=== PATIENT | female | born 1955 | race Two or more races ===

== ENCOUNTER 2023-05-04 08:38 | Emergency (ER) | payer OTHER, MEDICAID ==
[~2023-05-04] VITALS: Ht 154.9 cm; Wt 88.1 kg
[2023-05-04] MEDS ORDERED: IPRATROPIUM BROM 0.5 MG/2.5ML INH SOL NEB ONE ×2 (09:15→10:45)
[2023-05-04] MEDS ORDERED: ALBUTEROL SULF 2.5 MG/0.5ML(0.5%) NEB SOLN NEB ONE ×2 (09:15→10:45)
[2023-05-04 10:24] VITALS: BP 156/72; PULSE 83; TEMP 98.1
[2023-05-04 10:52] VITALS: RESP 18; O2SAT 95
[2023-05-04] MEDS ORDERED: BECL40AE11 IN (11:01)
[2023-05-04] MEDS ORDERED: DexAMETHasone SOD PHOS 10MG/1ML VIAL INJ IM ONE (11:30)
[2023-05-04] MEDS ORDERED: AZIT-81 PO (12:48)
== END 2023-05-04 11:42 | disposition home or self-care (01) ==
LOC: ER 08:38
DX: J45.901 Unspecified asthma with (acute) exacerbation (principal); I10 Essential (primary) hypertension; R07.89 Other chest pain
CPT/HCPCS: 71046; 94640; 96372; 99284; J1100; J7644

== ENCOUNTER 2023-07-11 09:46 | Inpatient (IN) | payer OTHER, MEDICAID ==
[~2023-07-11] VITALS: Ht 154.9 cm; Wt 92.0 kg
[~2023-07-11 09:46] MED LIST: AZIT-81 PO; BECL40AE11 IN
[2023-07-11] MEDS ORDERED: NITROGLYCERIN 2% OINT 1GM PKG TD ONE (10:30)
[2023-07-11] MEDS ORDERED: FUROSEMIDE 40 MG/4 ML VIAL IV ONE (10:30)
[2023-07-11] MEDS ORDERED: ASPirin 81 mg TAB PO ONE (10:30)
[2023-07-11 10:53] LABS: Basophils # (auto) 0.1 10 ^3/uL (0-0.2); Basophils % (auto) 0.7 % (0.0-2.0); Eosinophils # (auto) 0.1 10 ^3/uL (0-0.8); Eosinophils % (auto) 1.1 % (0.0-7.0); Hematocrit 40.8 % (36.0-46.0); Hemoglobin 13.2 g/dL (12.2-16.2); Lymphocytes # (auto) 2.2 10 ^3/uL (0.4-5.4); Lymphocytes % (auto) 27.2 % (10.0-50.0); Mean Corpuscular Hgb Conc. 32.4 g/dL (32.0-36.0); Mean Corpuscular Volume 92.7 fL (80.0-100.0); Monocytes # (auto) 0.8 10 ^3/uL (0-1.3); Monocytes % (auto) 9.6 % (0.0-12.0); Neutrophils # (auto) 4.9 10 ^3/uL (1.6-8.6); Neutrophils % (auto) 61.4 % (37.0-80.0); Nucleated Red Blood Cells % 0.1 %; Red Cell Distribution Width 14.9 % (11.8-14.3)
[2023-07-11 11:08] LABS: INR 1.17 (0.9-1.15); Partial Thromboplastin Time 24.3 SEC (24.5-34.5); Prothrombin Time 12.2 sec (9.3-11.8)
[2023-07-11 11:10] LABS: Alanine Aminotransferase 63 U/L (7-40); Albumin 3.9 g/dL (3.2-4.8); Alkaline Phosphatase 96 U/L (46-116); Anion Gap 8 (5-15); Aspartate Aminotransferase 36 U/L (13-40); BUN/Creatinine Ratio 13.7 (10.0-20.0); Bilirubin, Total 0.8 mg/dL (0.2-1.0); Blood Urea Nitrogen 20 mg/dL (9-23); Calcium 8.9 mg/dL (8.7-10.4); Carbon Dioxide 30 mmol/L (20-30); Chloride 100 mmol/L (98-107); Glucose 123 mg/dL (74-106); Magnesium 1.6 mg/dL (1.6-2.6); Sodium 138 mmol/L (136-145); Total Protein 6.2 g/dL (5.7-8.2)
[2023-07-11] MEDS: MAGNESIUM SULFATE 1GM/100ML 100 ML IV SCH ×2 (11:45→15:31)
[2023-07-11] MEDS ORDERED: ALBUTEROL MEDNEB 2.5 mg/3ml NEB NEB PRN (13:15)
[2023-07-11] MEDS ORDERED: LISINOPRIL 5 MG TAB PO ONE (13:45)
[2023-07-11 13:55] LABS: Triglycerides 112 mg/dL (< 150)
[2023-07-11 13:56] LABS: LDL Cholesterol 109 mg/dL (< 100)
[2023-07-11 13:57] LABS: Cholesterol 154 mg/dL (< 200); HDL Cholesterol 40 mg/dL (40-59)
[2023-07-11] MEDS ORDERED: IBUP1TAB4 PO (14:52)
[2023-07-11] MEDS ORDERED: VALS1TAB58 PO (14:52)
[2023-07-11] MEDS ORDERED: MET50T PO (14:52)
[2023-07-11 14:57] VITALS: BP 120/61; PULSE 101; RESP 18; TEMP 98.3; O2SAT 94
[2023-07-11 20:21] VITALS: BP 120/61; PULSE 101; RESP 18; TEMP 98.3; O2SAT 94
[2023-07-11 22:00] VITALS: BP 129/80; PULSE 105; RESP 20; TEMP 98.3; O2SAT 95
[2023-07-11 23:05] VITALS: O2SAT 94
[2023-07-12] VITALS (14 sets, daily range): BP systolic 102–136; BP diastolic 64–93; PULSE 58–124; RESP 17–24; TEMP 97.8–98.8; O2SAT 92–100
[2023-07-12 07:00] LABS: Basophils # (auto) 0 10 ^3/uL (0-0.2); Basophils % (auto) 0.5 % (0.0-2.0); Eosinophils # (auto) 0.2 10 ^3/uL (0-0.8); Eosinophils % (auto) 2.4 % (0.0-7.0); Hematocrit 38.4 % (36.0-46.0); Hemoglobin 12.8 g/dL (12.2-16.2); Lymphocytes # (auto) 2.2 10 ^3/uL (0.4-5.4); Lymphocytes % (auto) 34.5 % (10.0-50.0); Mean Corpuscular Hemoglobin 30.8 pg (28.0-32.0); Mean Corpuscular Hgb Conc. 33.3 g/dL (32.0-36.0); Mean Corpuscular Volume 92.8 fL (80.0-100.0); Monocytes # (auto) 0.6 10 ^3/uL (0-1.3); Monocytes % (auto) 9.6 % (0.0-12.0); Neutrophils # (auto) 3.4 10 ^3/uL (1.6-8.6); Red Blood Cells 4.14 10^6/uL (4.0-5.20); Red Cell Distribution Width 14.7 % (11.8-14.3); White Blood Cell 6.4 10^3/uL (4.4-10.8)
[2023-07-12 08:03] LABS: Alanine Aminotransferase 51 U/L (7-40); Alkaline Phosphatase 76 U/L (46-116); Calcium 8.9 mg/dL (8.5-10.1); Chloride 101 mmol/L (98-107)
[2023-07-12 08:04] LABS: Albumin 3.5 g/dL (3.2-4.8); Anion Gap 5 (5-15); Aspartate Aminotransferase 34 U/L (13-40); BUN/Creatinine Ratio 15.6 (10.0-20.0); Blood Urea Nitrogen 20 mg/dL (9-23); Carbon Dioxide 33 mmol/L (20-30); Glucose 109 mg/dL (74-106); Potassium 3.8 mmol/L (3.5-5.1); Sodium 139 mmol/L (136-145)
[2023-07-12 08:05] LABS: Bilirubin, Total 0.9 mg/dL (0.2-1.0); Total Protein 5.6 g/dL (5.7-8.2)
[2023-07-12] MEDS ORDERED: ENOXAPARIN SOD 40 MG/0.4 ML SYRINGE SC SCH (10:00)
[2023-07-12] MEDS: ASPirin 81 mg TAB PO SCH (10:19)
[2023-07-12] MEDS: FUROSEMIDE 20 MG/2 ML VIAL IV SCH (10:22)
[2023-07-12] MEDS: LISINOPRIL 5 MG TAB PO SCH (10:26)
[2023-07-12] MEDS: APIXABAN 5 MG TAB PO SCH (21:02)
[2023-07-13] VITALS (10 sets, daily range): BP systolic 92–130; BP diastolic 46–82; PULSE 68–99; RESP 16–20; TEMP 97.5–98.4; O2SAT 96–99
[2023-07-13] MEDS ORDERED: METOPROLOL SUCCINATE XL 50 MG TAB PO ONE (01:45)
[2023-07-13] MEDS ORDERED: METOPROLOL TARTRATE 50 MG TAB PO ONE (02:00)
[2023-07-13] MEDS: ASPirin 81 mg TAB PO SCH (08:52)
[2023-07-13] MEDS: METOPROLOL TARTRATE 50 MG TAB PO SCH ×2 (08:53→22:01)
[2023-07-13] MEDS: APIXABAN 5 MG TAB PO SCH (08:53)
[2023-07-13] MEDS: FUROSEMIDE 20 MG/2 ML VIAL IV SCH (08:54)
[2023-07-13] MEDS: LISINOPRIL 5 MG TAB PO SCH (08:54)
[2023-07-13] MEDS ORDERED: METOPROLOL SUCCINATE XL 50 MG TAB PO SCH (10:00)
[2023-07-13 13:02] LABS: Basophils # (auto) 0 10 ^3/uL (0-0.2); Basophils % (auto) 0.6 % (0.0-2.0); Eosinophils # (auto) 0.1 10 ^3/uL (0-0.8); Eosinophils % (auto) 2.5 % (0.0-7.0); Hematocrit 39.2 % (36.0-46.0); Lymphocytes # (auto) 1.6 10 ^3/uL (0.4-5.4); Lymphocytes % (auto) 27.2 % (10.0-50.0); Mean Corpuscular Hemoglobin 30.8 pg (28.0-32.0); Mean Corpuscular Hgb Conc. 33.2 g/dL (32.0-36.0); Mean Corpuscular Volume 92.9 fL (80.0-100.0); Monocytes # (auto) 0.5 10 ^3/uL (0-1.3); Monocytes % (auto) 8.2 % (0.0-12.0); Neutrophils # (auto) 3.7 10 ^3/uL (1.6-8.6); Neutrophils % (auto) 61.5 % (37.0-80.0); Nucleated Red Blood Cells % 0.1 %; Red Blood Cells 4.22 10^6/uL (4.0-5.20); Red Cell Distribution Width 14.9 % (11.8-14.3)
[2023-07-13 13:37] LABS: Wright Stain Ready for Review
[2023-07-14] VITALS (9 sets, daily range): BP systolic 108–149; BP diastolic 67–82; PULSE 55–110; RESP 18–19; TEMP 97.7–98.2; O2SAT 92–99
[2023-07-14] MEDS: FUROSEMIDE 20 MG/2 ML VIAL IV SCH (09:51)
[2023-07-14] MEDS: LISINOPRIL 5 MG TAB PO SCH (09:52)
[2023-07-14] MEDS: METOPROLOL TARTRATE 50 MG TAB PO SCH ×2 (09:52→21:44)
[2023-07-14 13:59] LABS: Urine Bacteria NONE SEEN /hpf (None Seen); Urine Blood Negative /uL (Negative); Urine Clarity Clear (Clear); Urine Color Straw (Yellow); Urine Protein, UAD Negative (Negative); Urine Specific Gravity 1.006 (1.001-1.035); Urine Urobilinogen Normal (Negative); Urine WBC <1 /hpf (0 - 5); Urine pH 6.5 (5.0-8.0)
[2023-07-15] VITALS (12 sets, daily range): BP systolic 121–146; BP diastolic 65–108; PULSE 85–117; RESP 14–20; TEMP 97.5–98.2; O2SAT 90–100
[2023-07-15 06:39] LABS: Basophils # (auto) 0.1 10 ^3/uL (0-0.2); Basophils % (auto) 0.7 % (0.0-2.0); Eosinophils # (auto) 0.1 10 ^3/uL (0-0.8); Eosinophils % (auto) 1.9 % (0.0-7.0); Hematocrit 39.8 % (36.0-46.0); Lymphocytes # (auto) 2.2 10 ^3/uL (0.4-5.4); Lymphocytes % (auto) 32.4 % (10.0-50.0); Mean Corpuscular Hemoglobin 30.5 pg (28.0-32.0); Mean Corpuscular Hgb Conc. 32.6 g/dL (32.0-36.0); Mean Corpuscular Volume 93.6 fL (80.0-100.0); Monocytes # (auto) 0.6 10 ^3/uL (0-1.3); Monocytes % (auto) 9.4 % (0.0-12.0); Neutrophils # (auto) 3.8 10 ^3/uL (1.6-8.6); Neutrophils % (auto) 55.6 % (37.0-80.0); Nucleated Red Blood Cells % 0.1 %; Red Blood Cells 4.25 10^6/uL (4.0-5.20); Red Cell Distribution Width 14.8 % (11.8-14.3); White Blood Cell 6.9 10^3/uL (4.4-10.8)
[2023-07-15 06:55] LABS: Alanine Aminotransferase 36 U/L (7-40); Alkaline Phosphatase 69 U/L (46-116); Anion Gap 2 (5-15); BUN/Creatinine Ratio 12.1 (10.0-20.0); Blood Urea Nitrogen 12 mg/dL (9-23); Calcium 8.9 mg/dL (8.7-10.4); Carbon Dioxide 39 mmol/L (20-30); Chloride 97 mmol/L (98-107); Glucose 102 mg/dL (74-106); Potassium 4.1 mmol/L (3.5-5.1); Sodium 138 mmol/L (136-145)
[2023-07-15 06:56] LABS: Albumin 3.7 g/dL (3.2-4.8); Aspartate Aminotransferase 23 U/L (13-40); Bilirubin, Total 0.9 mg/dL (0.2-1.0); Total Protein 6.1 g/dL (5.7-8.2)
[2023-07-15] MEDS ORDERED: VANCOMYCIN HCL 1000 MG VL ONE ×2 (07:50→09:10)
[2023-07-15] MEDS ORDERED: fentaNYL CITRATE 100 MCG/2 ML VL ONE (07:50)
[2023-07-15] MEDS ORDERED: MIDAZOLAM HCL 2MG/2ML 2ml VIAL (1mg/ml) ONE (07:51)
[2023-07-15] MEDS ORDERED: LIDOCAINE 2%HCL (LOCAL ANESTH.) INJ 20ML MDV ONE (07:51)
[2023-07-15] MEDS ORDERED: VANCOMYCIN 1GM/250ML 250 ML IV ONE (07:51)
[2023-07-15] MEDS ORDERED: IODIXANOL 320MG/ML 100ML BTL IV ONE (08:16)
[2023-07-15 08:33] LABS: INR 1.1 (0.9-1.15); Partial Thromboplastin Time 27.5 SEC (24.5-34.5); Prothrombin Time 11.5 sec (9.3-11.8)
[2023-07-15] MEDS ORDERED: METOPROLOL TARTRATE 1MG/1ML-5ML VIAL IV ONE (08:39)
[2023-07-15] MEDS: METOPROLOL TARTRATE 50 MG TAB PO SCH ×2 (10:00→21:54)
[2023-07-15] MEDS: FUROSEMIDE 20 MG/2 ML VIAL IV SCH (10:00)
[2023-07-15] MEDS: LISINOPRIL 5 MG TAB PO SCH (10:00)
[2023-07-15] MEDS: ceFAZolin 1GM/50ML 50 ML IV SCH ×2 (13:44→22:52)
[2023-07-15] MEDS: ACETAMINOPHEN 325 MG TAB PO PRN (13:44)
[2023-07-15] MEDS ORDERED: VANCOMYCIN 1GM/250ML 250 ML IV SCH (20:00)
[2023-07-16] VITALS (8 sets, daily range): BP systolic 126–165; BP diastolic 73–91; PULSE 88–113; RESP 16–22; TEMP 97.6–99.3; O2SAT 91–100
[2023-07-16] MEDS: ceFAZolin 1GM/50ML 50 ML IV SCH ×3 (05:39→22:04)
[2023-07-16] MEDS: ACETAMINOPHEN 325 MG TAB PO PRN ×2 (06:03→21:55)
[2023-07-16] MEDS ORDERED: ALBUTEROL SULF 2.5 MG/0.5ML(0.5%) NEB SOLN ONE (06:12)
[2023-07-16] MEDS ORDERED: VANCOMYCIN 1GM/250ML 250 ML IV SCH (08:00)
[2023-07-16] MEDS: LISINOPRIL 5 MG TAB PO SCH (09:10)
[2023-07-16] MEDS: METOPROLOL TARTRATE 50 MG TAB PO SCH ×2 (09:11→21:54)
[2023-07-16] MEDS: FUROSEMIDE 20 MG/2 ML VIAL IV SCH (09:11)
[2023-07-17 02:20] VITALS: O2SAT 92
[2023-07-17 05:00] VITALS: BP 137/89; PULSE 74; RESP 16; TEMP 98.2; O2SAT 96
[2023-07-17] MEDS: ceFAZolin 1GM/50ML 50 ML IV SCH ×2 (06:00→14:38)
[2023-07-17 08:00] VITALS: PULSE 114
[2023-07-17 09:00] VITALS: BP 139/91; PULSE 79; RESP 16; TEMP 98.1; O2SAT 96
[2023-07-17] MEDS: METOPROLOL TARTRATE 50 MG TAB PO SCH (10:16)
[2023-07-17] MEDS: LISINOPRIL 5 MG TAB PO SCH (10:16)
[2023-07-17] MEDS: FUROSEMIDE 20 MG/2 ML VIAL IV SCH (10:17)
[2023-07-17 13:00] VITALS: BP 119/73; PULSE 80; RESP 14; TEMP 98.1; O2SAT 95
== END 2023-07-17 16:58 | disposition home or self-care (01) | DRG 276 ==
LOC: ER 09:48 → OVERFLOW 13:11 → CENTRAL 14:04 → WEST WING 07-12 03:50 → TELE-WESTW 07-13 04:00
PROVIDERS: ADMIT Nurse Practitioner Family; ATTEND Family Medicine
PROC: 0JH609Z Insertion of Cardiac Resynchronization Defibrillator Pulse Generator into Chest Subcutaneous Tissue and Fascia, Open Approach (ICD-10-PCS; principal; 2023-07-15)
PROC: 02HK3KZ Insertion of Defibrillator Lead into Right Ventricle, Percutaneous Approach (ICD-10-PCS; 2023-07-15)
PROC: B517YZZ Fluoroscopy of Left Subclavian Vein using Other Contrast (ICD-10-PCS; 2023-07-15)
DX: I13.0 Hypertensive heart and chronic kidney disease with heart failure and stage 1 through stage 4 chronic kidney disease, or unspecified chronic kidney disease (principal); I50.23 Acute on chronic systolic (congestive) heart failure; B57.2 Chagas' disease (chronic) with heart involvement; I48.91 Unspecified atrial fibrillation; I42.9 Cardiomyopathy, unspecified; E66.01 Morbid (severe) obesity due to excess calories; E78.5 Hyperlipidemia, unspecified; N18.30 Chronic kidney disease, stage 3 unspecified; J44.9 Chronic obstructive pulmonary disease, unspecified; E11.22 Type 2 diabetes mellitus with diabetic chronic kidney disease; Z68.38 Body mass index [BMI] 38.0-38.9, adult; Z79.01 Long term (current) use of anticoagulants; Z79.82 Long term (current) use of aspirin; Z80.1 Family history of malignant neoplasm of trachea, bronchus and lung; Z95.810 Presence of automatic (implantable) cardiac defibrillator
CPT/HCPCS: 33249; 36415; 71045; 80053; 80061; 81001; 83036; 83735; 83880; 84443; 84484; 85025; 85379; 85610; 85730; 86850; 86900; 86901; 87081; 93005; 93306; 93970; 94640; 99152; 99153; G0378; J0690; J2250; Q9967

== ENCOUNTER 2024-09-04 10:56 | Emergency (ER) | payer OTHER, MEDICAID ==
[~2024-09-04] VITALS: Ht 154.9 cm; Wt 87.6 kg
[~2024-09-04 10:56] MED LIST changes: +AZIT-185 PO; -AZIT-81 PO; +IBUP1TAB4 PO; +MET50T PO; +VALS1TAB58 PO
--- NOTE | 2024-09-04 13:44 | ED.PDOC ---
SOB-HPI HPI Comments This is a 69 year old feamle with SOB that started last night. States has continued to be SOB since. No cough, feels tired, no fever no chills. 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 History Family History Family History: Unobtainable Social History Smoker: Non-Smoker Alcohol: Denies ETOH Use Drugs: Denies Drug Use Lives In: Home Respiratory: reports: cough, SOB at rest, shortness of breath, wheezing All Other Systems: Reviewed and Negative Physical Exam General Appearance: No Apparent Distress, None, Obese HEENT: Normal ENT Inspection, PERRL/EOMI, Pharynx Normal, TMs Normal Neck: Full Range of Motion, Non-Tender, Normal Inspection Respiratory: Decreased Breath Sounds, No Accessory Muscle Use, Wheezing Cardiovascular: No Edema, Regular Rate/Rhythm Breast Exam: Deferred Gastrointestinal: Non Tender, Normal Bowel Sounds, Soft Genitalia: Deferred Pelvic: Deferred Rectal: Deferred Extremities: Normal inspection, Normal range of motion Neurologic: Alert, Normal Affect, Normal Mood Cerebellar Function: NOT DONE Reflexes: NOT DONE Skin: Dry, Warm Lymphatic: No Adenopathy Was a procedure done? Was a procedure done?: No Differential Dx Differential Diagnosis: Pneumonia X-Ray, Labs, Meds, VS Vital Signs Date Time Temp Pulse Resp B/P (MAP) Pulse Ox O2 Delivery O2 Flow Rate FiO2 09/04/24 13:48 16 95 Room Air* 0 21 09/04/24 12:58 98.7 97 17 137/77 (97) 97 98.7 09/04/24 12:58 77 17 97 Room Air 09/04/24 11:19 18 97 Room Air* 0 21 09/04/24 11:07 98.8 98 18 147/87 (107) 97 Current Medications Medications (Trade) Dose Ordered Sig/Umer Route Start Time Stop Time Status Last Admin Dexamethasone Sodium Phosphate (Decadron Injection) 10 mg ONCE ONCE IM 09/04/24 13:45 09/04/24 13:46 DC 09/04/24 14:06 Albuterol (Ventolin Medneb) 2.5 mg ONCE ONCE NEB 09/04/24 13:45 09/04/24 13:46 DC 09/04/24 13:47 X-Ray, Labs, Meds, VS Comment Patient seen and examined by me. Patient is wheezing. I will give her Decadron 10 mg, Albuterol breathing treatment and chest xray. Patient felt better after the meds. I will send her home on albuterol nebulizer, Antibiotics, prednisone. XY CHEST TWO VIEWS ROUTINE CLINICAL HISTORY: SOB COMPARISON: XY CHEST TWO VIEWS ROUTINE on DOS: 05/04/23 TECHNIQUE: Frontal and lateral view of the chest was obtained FINDINGS: Lines and Tubes: Pacemaker in place with pulse generator over the left chest Lungs: No focal consolidation. Pleura: No effusion. No pneumothorax. Cardiomediastinal contours: Unremarkable Bones: No acute osseous abnormality. IMPRESSION: 1. No acute cardiopulmonary disease. Time of 1ST Reevaluation: 15:29 Reevaluation 1ST: Improved Patient Education/Counseling: Diagnosis, Treatment, Prognosis, Need For Follow Up Family Education/Counseling: Diagnosis, Treatment, Prognosis, Need For Follow Up Departure 1 Departure Time of Disposition: 15:33 Impression: Primary Impression: Asthma exacerbation Additional Impressions: Asthmatic bronchitis Upper respiratory infection Disposition: HOME / SELF CARE / HOMELESS Condition: Good Additional Instructions: Finish antibiotics as directed Drink a lot of liquids Finish all the prednisone until gone e-Prescriptions Albuterol Sulfate (Albuterol Sulfate) 0.083 % Neb 1 VIAL NEB Q4HPRN PRN for 7 Days, #50 VIAL Prov: JIA MINAYA [facility] 09/04/24 Prednisone (Prednisone) 20 Mg Tab 40 MG PO DAILY@BREAKFAST for 5 Days, #4 MG Prov: JIA MINAYA [facility] 09/04/24 Amoxicillin & Pot Clavulanate (AUGMENTIN TABLET) 875 Mg Tb 875 MG PO BID for 7 Days, #14 TAB Prov: JIA MINAYA [facility] 09/04/24 Discharged With: Self, Spouse Critical Care Note Critical Care Time?: No Stability Stability form required: No Heart Score Heart Score: Heart Score Response (Comments) Value History N/A 0 EKG N/A 0 Age N/A 0 Risk Factors N/A 0 Troponin N/A 0 Total 0 JIA MINAYA [facility] Sep 04, 2024 13:44
[2024-09-04] MEDS: ALBUTEROL SULF 2.5 MG/0.5ML(0.5%) NEB SOLN NEB ONE (13:47)
[2024-09-04] MEDS: DexAMETHasone SOD PHOS 10MG/1ML VIAL INJ IM ONE (14:06)
--- NOTE | 2024-09-04 15:19 | DVH ---
XY CHEST TWO VIEWS ROUTINE CLINICAL HISTORY: SOB COMPARISON: XY CHEST TWO VIEWS ROUTINE on DOS: 05/04/23 TECHNIQUE: Frontal and lateral view of the chest was obtained FINDINGS: Lines and Tubes: Pacemaker in place with pulse generator over the left chest Lungs: No focal consolidation. Pleura: No effusion. No pneumothorax. Cardiomediastinal contours: Unremarkable Bones: No acute osseous abnormality. IMPRESSION: 1. No acute cardiopulmonary disease.
[2024-09-04] MEDS ORDERED: AUG875T PO (15:32)
[2024-09-04] MEDS ORDERED: PRED20TA2 PO (15:32)
[2024-09-04] MEDS ORDERED: ALBU0.084 NEB (15:32)
[2024-09-04 15:50] VITALS: BP 117/88; PULSE 76; RESP 20; TEMP 98.4; O2SAT 98
== END 2024-09-04 15:57 | disposition home or self-care (01) ==
LOC: ER 10:56
DX: J45.901 Unspecified asthma with (acute) exacerbation (principal); J06.9 Acute upper respiratory infection, unspecified; I10 Essential (primary) hypertension; Z95.0 Presence of cardiac pacemaker; Z98.890 Other specified postprocedural states
CPT/HCPCS: 71046; 94640; 96372; 99285; J1100; J7030

== ENCOUNTER 2024-12-08 11:08 | Inpatient (IN) | payer OTHER, MEDICAID ==
[~2024-12-08] VITALS: Ht 149.9 cm; Wt 89.4 kg
[~2024-12-08 11:08] MED LIST changes: +ALBU0.084 NEB; +AUG875T PO; +PRED20TA2 PO
--- NOTE | 2024-12-08 11:36 | ED.PDOC ---
SOB-HPI HPI Comments 69y F who presents to the ED for chief complaint of shortness of breath. PMH: HTN, asthma PSH: pacemaker allergies: nkda medications: unknown social history: denies ETOH, denies tobacco use, denies drug use HPI: Poor Historian. - pt states she had an episode of palpitations that lasted a few second. - pt states she has continued to have shortness of breath while at rest and with exertion and came to the ED for further evaluation. Patient denies any in his shock by the pacemaker/defibrillator. Patient states having chronic worsening generalized weakness with ambulation. She uses a walker at home. She feels that her legs are weak and shaking when she tries to walk which is acute on chronic. REVIEW OF SYSTEMS: CONSTITUTIONAL: Denies acute: fever, diaphoresis, chills, HEAD: Denies acute: headache, photophobia Eyes: Denies acute: Double vision, vision loss, eye pain, eye discharge. EARS: Denies acute: tinnitus, hearing loss, ear discharge, ear pain, THROAT: Denies acute: sore throat, swelling, difficulty swallowing , pain with swallowing, change in voice. NECK: Denies acute: neck pain, neck swelling, stiff neck. HEART: Denies acute : chest pain, LUNGS: Denies acute: wheezing, cough, hemoptysis ABDOMEN: Denies acute: abdominal pain, Nausea, Vomiting, diarrhea, melena , hematemesis, hematochezia. Obese SKIN: Denies acute: rash, redness, lesions, itchiness. EXTREMITIES: Denies acute: calf pain, numbness, tingling, weakness, denies pain in extremity. Denies acute: Low back pain. Neuro: Denies acute: focal neurological deficit, motor or sensory focal neurological deficit, tremors, seizure like activity, confusion, dizziness, change in mental status, loss of bowel or bladder function, cauda equina like symptoms. : Denies acute: dysuria, hematuria, flank pain, increase in urinary frequency. PSYCH: Denies acute: hallucination, suicidal ideation, homicidal ideation. FEMALE: Denies acute: abnormal vaginal bleeding, foul odor, unusual discharge. PHYSICAL EXAM: General: ----mild----acute distress, awake and alert. Head: normocephalic, atraumatic. Neck: supple, trachea is midline, no swelling. Throat: Normal phonation. Eyes:, no erythema, no purulent discharge, no proptosis, no icterus. Heart: regular rate, regular rhythm, no significant murmur appreciated. Lungs: no apparent respiratory distress, Able to speak in full sentences. No wheezing, no rhonchi, no crackles. No stridors Clear to auscultation bilaterally. Abdomen: non tender to palpation, non distended, soft, no guarding, no rebound, + bowel sounds. Obese Pacemaker site on left chest wall looks normal. Neuro: Awake, Alert, oriented to name, self, situation, follows commands GCS=15. Speech is normal. Skin: no petechia, no purpura, no cyanosis, non-pale, not jaundice. Lower extremities: --no - Pitting edema no deformity, no focal swelling, no calf TTP. Makes eye contact. moves all four extremities. Face: no apparent facial droop. 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 Was a procedure done?: No Differential Dx Differential Diagnosis: Other (DDx include ACS, unstable angina, anxiety, PE, pneumothroax, neoplasm, cardiac ischemia, COPD, asthma, CHF, pleural effusion, tobacco abuse, pneumonia, hypoxia, hypercapnia, anemia., infection/sepsis., pulmonary edema. Asthma, Cardiac tamponade, infection.) X-Ray, Labs, Meds, VS Vital Signs Date Time Temp Pulse Resp B/P (MAP) Pulse Ox O2 Delivery O2 Flow Rate FiO2 12/08/24 18:20 98.0 89 20 92/51 (65) 96 98.0 12/08/24 18:20 89 20 96 Room Air 12/08/24 15:30 98.5 85 20 98/58 (71) 96 98.5 12/08/24 13:55 80 16 95 Room Air* 0 21 12/08/24 13:39 125/67 12/08/24 13:22 98.1 80 18 123/67 (85) 95 98.1 12/08/24 11:46 98 12/08/24 11:15 97.9 109 18 94 97.9 Lab Test 12/08/24 14:36 12/08/24 14:33 12/08/24 12:19 12/08/24 11:44 Range/Units Troponin I High Sensitivity 23 24 </=34 ng/L Blood Gas Specimen Type Arterial Blood Gas Sample Site Right radial Blood Gas Patient Temperature 37.0 Arterial Blood Date Drawn [id number] Arterial Blood pH 7.430 7.350-7.450 Arterial Blood Partial Pressure CO2 36.3 32.0-45.0 mmHg Arterial Blood Partial Pressure O2 70.4 L 83.0-108.0 mmHg Arterial Blood HCO3 23.6 21.0-28.0 mmol/L Arterial Blood Oxygen Saturation 94.0 94.0-98.0 % Arterial Blood Base Excess -0.3 -2.0-3.0 mmol/L Arterial Blood Oxyhemoglobin 93.2 L 94.0-98.0 % Arterial Blood Carboxyhemoglobin 0.4 L 0.5-1.5 % Arterial Blood Methemoglobin 0.4 0.0-1.5 % Ritesh Test Yes Blood Gas Total Hemoglobin 14.20 12.0-16.0 g/dL Blood Gas Modality Room air FiO2 % 21.0 Urine Color Light-yellow Yellow Urine Clarity Clear Clear Urine pH 6.0 5.0-9.0 Urine Specific Husser 1.009 1.001-1.035 Urine Protein Negative Negative Urine Ketones Negative Negative Urine Blood Negative Negative /uL Urine Nitrite Negative Negative Urine Bilirubin Negative Negative Urine Urobilinogen Normal Negative mg/dL Urine Leukocyte Esterase 2+ Negative /uL Urine RBC 1 0 - 4 /hpf Urine Microscopic WBC 7 H 0-5 /HPF Urine Squamous Epithelial Cells Few <5 /hpf Urine Bacteria Few H None Seen /hpf Urine Glucose Normal Normal mg/dL Test 12/08/24 11:40 Range/Units White Blood Count 5.2 4.4-10.8 10^3/uL Red Blood Count 4.30 4.0-5.20 10^6/uL Hemoglobin 13.3 12.2-16.2 g/dL Hematocrit 39.7 36.0-46.0 % Mean Corpuscular Volume 92.2 80.0-100.0 fL Mean Corpuscular Hemoglobin 30.9 28.0-32.0 pg Mean Corpuscular Hemoglobin Concent 33.5 32.0-36.0 g/dL Red Cell Distribution Width 13.3 11.8-14.3 % Platelet Count 234 140-450 10^3/uL Mean Platelet Volume 8.7 6.9-10.8 fL Neutrophils (%) (Auto) 53.0 37.0-80.0 % Lymphocytes (%) (Auto) 35.9 10.0-50.0 % Monocytes (%) (Auto) 6.8 0.0-12.0 % Eosinophils (%) (Auto) 3.4 0.0-7.0 % Basophils (%) (Auto) 0.9 0.0-2.0 % Neutrophils # (Auto) 2.8 1.6-8.6 10 ^3/uL Lymphocytes # (Auto) 1.9 0.4-5.4 10 ^3/uL Monocytes # (Auto) 0.4 0-1.3 10 ^3/uL Eosinophils # (Auto) 0.2 0-0.8 10 ^3/uL Basophils # (Auto) 0 0-0.2 10 ^3/uL Nucleated Red Blood Cells 0.2 % Sodium Level 141 136-145 mmol/L Potassium Level 4.2 3.5-5.1 mmol/L Chloride Level 104 98-107 mmol/L Carbon Dioxide Level 31 20-31 mmol/L Anion Gap 6 5-15 Blood Urea Nitrogen 20 9-23 mg/dL Creatinine 1.09 H 0.550-1.02 mg/dL Glomerular Filtration Rate Calc 55 >90 mL/min BUN/Creatinine Ratio 18.3 10.0-20.0 Serum Glucose 178 H 74-106 mg/dL Calcium Level 9.8 8.7-10.4 mg/dL Magnesium Level 1.7 1.6-2.6 mg/dL Total Bilirubin 0.7 0.2-1.0 mg/dL Aspartate Amino Transferase (AST) 19 13-40 U/L Alanine Aminotransferase (ALT) 25 7-40 U/L Alkaline Phosphatase 72 46-116 U/L Troponin I High Sensitivity 25 </=34 ng/L B-Type Natriuretic Peptide 345.58 0-100 pg/mL Total Protein 6.3 5.7-8.2 g/dL Albumin 3.9 3.2-4.8 g/dL Current Medications Medications (Trade) Dose Ordered Sig/Umer Route Start Time Stop Time Status Last Admin Furosemide (Lasix Injection) 20 mg ONCE ONCE IV 12/08/24 13:15 12/08/24 13:16 DC 12/08/24 13:39 Ceftriaxone Sodium 50 ml @ 100 mls/hr ONCE ONCE IV 12/08/24 13:45 12/08/24 14:14 DC 12/08/24 13:59 [place] [id number] Ph: [phone] DIAGNOSTIC IMAGING Diagnostic Imaging Report : [id number] Signed PATIENT: BRADLEY ELLIS ACCT: [id number] UNIT: [id number] : 1955 LOC: ER ROOM / BED: / AGE / SEX: 69 / F ADM STATUS: REG ER SERVICE 1133 ORDERING PHYSICIAN: ZEUS MCKNIGHT DO PROCEDURE(s): CXRP - CHEST PORTABLE REASON: sob/weak ORDER NUMBER(s): [id number], ACCESSION NUMBER(s): [id number] EXAM: XY CHEST PORTABLE Indication: sob/weak Technique: Single frontal view of the chest was obtained Comparison: XY CHEST PORTABLE on DOS: 07/15/23, XY CHEST PORTABLE on DOS: 07/12/23, XY CHEST PORTABLE on DOS: 07/11/23 FINDINGS: Lines and Tubes: Cardiac pacemaker projects over the left chest wall Lungs: No focal consolidation. Pleura: No effusion. No pneumothorax. Cardiomediastinal contours: Cardiomegaly. Bones: No acute osseous abnormality. IMPRESSION: Cardiomegaly. No acute cardiopulmonary disease. ATED BY: GARRISON ORELLANA MD DICTATED DATE/TIME: 12/08/24 1235 SIGNED BY: GARRISON ORELLANA MD SIGNED DATE/TIME: 12/08/24 1235 CC: Time of 1ST Reevaluation: 21:23 Reevaluation 1ST: Improved Patient Education/Counseling: Diagnosis, Treatment Family Education/Counseling: Diagnosis, Treatment Comments Patient presented with the above HPI.---dyspnea---workup was initiated. patient was found with the above mentioned diagnosis. the following medications were ordered: please refer to order lists of meds and tests obtained by myself Dr. Mcknight. Patient ED course and VS have been stabilized. Patient has been reassessed in the ED and remained in a stable condition. Pertinent incidental findings were discussed with the patient and/or family. Patient/family voices understanding and is agreeable with plan. Patient has been observed in the ED adequate length of time to insure improvement/stability. Escalation of care considered: Consideration of escalation to observation or admission Patient was ADMITTED to the medicine team for further evaluation and treatment of their presentation. All the reports of any imaging studies that were ordered by myself were reviewed by myself. Departure 1 Departure Time of Disposition: 13:37 Impression: Primary Impression: Exertional dyspnea Additional Impressions: Generalized weakness UTI (urinary tract infection) Hypoxemia Disposition: ADMITTED INPATIENT Admit to: Tele Condition: Guarded Discharged With: Self Critical Care Note Critical Care Time?: Yes (45 min-critical care time only) Heart Score Heart Score: Heart Score Response (Comments) Value History Moderate Suspicious 1 EKG Normal 0 Age >65 2 Risk Factors 1 or 2 risk factors 1 Troponin 1-2 x's Normal limit 1 Total 5 I personally scribed for ZEUS MCKNIGHT DO ([email or web address]) on 12/08/24 at 11:36. Electronically submitted by Mitchell Vazquez ([email or web address]). I personally scribed for ZEUS MCKNIGHT DO ([email or web address]) on 12/08/24 at 14:13. Electronically submitted by Mitchell Vazquez ([email or web address]). ZEUS MCKNIGTH DO December 08, 2024 11:36
--- NOTE | 2024-12-08 11:47 | ECG ---
[facility] Test Date: 2024-12-08 Test Time: 11:46:41 Pat Name: BRADLEY ELLIS Department: ER Room: Gender: F [employer] Receiver: VIANNEY : 1955 Requested By: ZEUS MCKNIGHT Order Number: [id number] Reading MD: Keith Dubois Measurements Intervals Bard Rate: 98 P: 0 VT: 0 QRS: -86 QRSD: 93 T: 104 QT: 387 QTc: 495 Interpretive Statements Atrial fibrillation Left anterior fascicular block Low voltage, precordial leads Consider anterior infarct Nonspecific T abnormalities, lateral leads Baseline wander in lead(s) V2 Electronically Signed On 12-08-2024 13:09:34 PDT by Keith Dubois Please click the below link to view image of tracing.
[2024-12-08 11:59] LABS: Basophils # (auto) 0 10 ^3/uL (0-0.2); Basophils % (auto) 0.9 % (0.0-2.0); Eosinophils # (auto) 0.2 10 ^3/uL (0-0.8); Eosinophils % (auto) 3.4 % (0.0-7.0); Hematocrit 39.7 % (36.0-46.0); Hemoglobin 13.3 g/dL (12.2-16.2); Lymphocytes # (auto) 1.9 10 ^3/uL (0.4-5.4); Lymphocytes % (auto) 35.9 % (10.0-50.0); Mean Corpuscular Hemoglobin 30.9 pg (28.0-32.0); Mean Corpuscular Hgb Conc. 33.5 g/dL (32.0-36.0); Mean Corpuscular Volume 92.2 fL (80.0-100.0); Monocytes # (auto) 0.4 10 ^3/uL (0-1.3); Monocytes % (auto) 6.8 % (0.0-12.0); Neutrophils # (auto) 2.8 10 ^3/uL (1.6-8.6); Nucleated Red Blood Cells % 0.2 %; Platelet Count (auto) 234 10^3/uL (140-450); Red Cell Distribution Width 13.3 % (11.8-14.3); White Blood Cell 5.2 10^3/uL (4.4-10.8)
[2024-12-08 12:11] LABS: Alanine Aminotransferase 25 U/L (7-40); Albumin 3.9 g/dL (3.2-4.8); Alkaline Phosphatase 72 U/L (46-116); Anion Gap 6 (5-15); Aspartate Aminotransferase 19 U/L (13-40); BUN/Creatinine Ratio 18.3 (10.0-20.0); Bilirubin, Total 0.7 mg/dL (0.2-1.0); Blood Urea Nitrogen 20 mg/dL (9-23); Calcium 9.8 mg/dL (8.7-10.4); Carbon Dioxide 31 mmol/L (20-31); Chloride 104 mmol/L (98-107); Magnesium 1.7 mg/dL (1.6-2.6); Potassium 4.2 mmol/L (3.5-5.1); Sodium 141 mmol/L (136-145); Total Protein 6.3 g/dL (5.7-8.2)
[2024-12-08 12:15] LABS: Glucose 178 mg/dL (74-106)
--- NOTE | 2024-12-08 12:37 | DVH ---
EXAM: XY CHEST PORTABLE Indication: sob/weak Technique: Single frontal view of the chest was obtained Comparison: XY CHEST PORTABLE on DOS: 07/15/23, XY CHEST PORTABLE on DOS: 07/12/23, XY CHEST PORTABLE o n DOS: 07/11/23 FINDINGS: Lines and Tubes: Cardiac pacemaker projects over the left chest wall Lungs: No focal consolidation. Pleura: No effusion. No pneumothorax. Cardiomediastinal contours: Cardiomegaly. Bones: No acute osseous abnormality. IMPRESSION: Cardiomegaly. No acute cardiopulmonary disease.
[2024-12-08 13:13] LABS: Urine Bacteria FEW /hpf (None Seen); Urine Blood Negative /uL (Negative); Urine Clarity Clear (Clear); Urine Color Light-Yellow (Yellow); Urine Protein, UAD Negative (Negative); Urine Specific Gravity 1.009 (1.001-1.035); Urine Squamous Epithelial Cell FEW /hpf (<5); Urine Urobilinogen Normal (Negative); Urine WBC 7 /HPF (0-5)
[2024-12-08] MEDS: FUROSEMIDE 20 MG/2 ML VIAL IV ONE (13:39)
[2024-12-08 13:55] VITALS: PULSE 80; RESP 16; O2SAT 95
[2024-12-08] MEDS: cefTRIAXone 1GM/50ML D5W 50 ML IV ONE ×2 (13:59→23:23)
[2024-12-08 14:39] LABS: Base Excess -0.3 mmol/L (-2.0-3.0)
[2024-12-08] MEDS ORDERED: ACETAMINOPHEN 325 MG TAB PO PRN (22:30)
[2024-12-08] MEDS ORDERED: ONDANSETRON HCL 4 MG/2 ML VIAL IV PRN (22:30)
[2024-12-08] MEDS ORDERED: DOCUSATE SOD 100 MG CAP PO PRN (22:30)
--- NOTE | 2024-12-08 22:50 | DVHHPRES ---
History of Present Illness Resident Creating Document: CHANNING SANCHEZ RESIDENT History of Present Illness Patient is a 61-year-old female with past medical history of Chagas cardiomyopathy, heart failure with reduced ejection fraction 20%, atrial fibrillation on Eliquis, hypertension, hyperlipidemia, s/p AICD placement in 2022, asthma, who comes in after feeling her AICD vibrating/ramping. According to the patient, yesterday she felt a vibration from her AICD around 7:00 a.m. shortly after taking her morning antihypertensive medications. Denies ever having similar symptoms in the past. Per patient, she received AICD placement in 2022 and she very well knows how to differentiate between AICD firing versus ramping up before firing. Patient subsequently called her assembly detailer's office and was told to come to the ER. On review of systems patient is complaining of dyspnea class 3 which has been stable over the last 1 year, fatigue, cough, severe generalized weakness. On physical exam patient is noted to have crackles throughout and 2+ lower extremity edema, serum BNP was 345 and serial troponins were 25, 24, 23. Chest x-ray showed cardiomegaly. According to the patient, sometimes she is nonadherent to medication and she also gave her metoprolol and verquvo to her sister when she was visiting [place] so she has been out of medications. Patient was admitted to the hospital and started on IV furosemide b.i.d., Cardiology was consulted and a repeat echocardiogram was ordered. Past Medical History Chagas cardiomyopathy, heart failure with reduced ejection fraction 20%, atrial fibrillation on Eliquis, hypertension, hyperlipidemia, s/p AICD placement in 2022, asthma Past Surgical History Cystocele repair, hernia repair, AICD placement. Smoke: No ALCOHOL: none Drugs: None Review of Systems Constitutional: Yes: Weakness, Malaise; No: Fever, Chills, Sweats, Other Eyes: No: Pain, Vision change, Conjunctivae inflammation, Eyelid inflammation, Other, Redness ENT: No: Ear pain, Ear discharge, Nose pain, Nose discharge, Nose congestion, Mouth pain, Mouth swelling, Throat pain, Throat swelling, Other Respiratory: Cough, Shortness of breath, SOB with excertion; No: Dry, Wheezing, Hemoptysis, Pleuritic Pain, Sputum, Wheezing, Other Cardiovascular: Orthopnea, Paroxysmal Noc. Dyspnea; No: Chest Pain, Palpitations, Edema, Lt Headedness, Other Gastrointestinal: No: Nausea, Vomiting, Abdominal Pain, Diarrhea, Constipation, Melena, Hematochezia, Other Genitourinary: No Dysuria, No Frequency, No Incontinence, No Hematuria, No Retention, No Other Musculoskeletal: No: other, neck pain, shoulder pain, arm pain, back pain, hand pain, leg pain, foot pain Skin: No: Rash, Lesions, Jaundice, Bruising, Other Neurological: No: Weakness, Numbness, Incoordination, Change in speech, Confusion, Seizures, Other Allergies: Coded Allergies: NO KNOWN ALLERGIES (Unverified , 04/21/14) Medications Current Medications Medications Dose Ordered Sig/Umer Route Start Time Stop Time Status Last Admin Dose Admin Acetaminophen 325 mg Q4HP PRN PO 12/08/24 22:30 UNV Ondansetron HCl 4 mg Q4HP PRN IV 12/08/24 22:30 UNV Docusate Sodium 100 mg BIDPRN PRN PO 12/08/24 22:30 UNV Enoxaparin Sodium 40 mg DAILY SC 12/09/24 10:00 UNV Furosemide 40 mg BIDD IV 12/09/24 06:00 UNV Exam Vital Signs Vital Signs Date Time Temp Pulse Resp B/P (MAP) Pulse Ox O2 Delivery O2 Flow Rate FiO2 12/08/24 18:20 98.0 89 20 92/51 (65) 96 98.0 12/08/24 18:20 Room Air 12/08/24 13:55 0 21 General Appearance: Alert, Oriented X3, Cooperative, No acute distress HEENT: Atraumatic, PERRLA, EOMI, Other (dry mucous membranes) Respiratory: Normal air movement, Other (Crackles) Cardiovascular: Regular rate, Normal S1, Normal S2 Abdominal: Normal bowel sounds, Soft, No tenderness Extremities: Other (1+ lower extremity edema up to the knees) Skin: No rashes Neuro: Normal speech, Strength at 5/5 X4 ext, Sensation intact Psych/Mental Status: Mental status NL, Mood NL Labs/Xrays Labs Test 12/08/24 14:36 12/08/24 14:33 12/08/24 11:44 12/08/24 11:40 Range/Units Troponin I High Sensitivity 23 </=34 ng/L Blood Gas Specimen Type Arterial Blood Gas Sample Site Right radial Blood Gas Patient Temperature 37.0 Arterial Blood Date Drawn [id number] Arterial Blood pH 7.430 7.350-7.450 Arterial Blood Partial Pressure CO2 36.3 32.0-45.0 mmHg Arterial Blood Partial Pressure O2 70.4 L 83.0-108.0 mmHg Arterial Blood HCO3 23.6 21.0-28.0 mmol/L Arterial Blood Oxygen Saturation 94.0 94.0-98.0 % Arterial Blood Base Excess -0.3 -2.0-3.0 mmol/L Arterial Blood Oxyhemoglobin 93.2 L 94.0-98.0 % Arterial Blood Carboxyhemoglobin 0.4 L 0.5-1.5 % Arterial Blood Methemoglobin 0.4 0.0-1.5 % Ritesh Test Yes Blood Gas Total Hemoglobin 14.20 12.0-16.0 g/dL Blood Gas Modality Room air FiO2 % 21.0 Urine Color Light-yellow Yellow Urine Clarity Clear Clear Urine pH 6.0 5.0-9.0 Urine Specific [place] 1.009 1.001-1.035 Urine Protein Negative Negative Urine Ketones Negative Negative Urine Blood Negative Negative /uL Urine Nitrite Negative Negative Urine Bilirubin Negative Negative Urine Urobilinogen Normal Negative mg/dL Urine Leukocyte Esterase 2+ Negative /uL Urine RBC 1 0 - 4 /hpf Urine Microscopic WBC 7 H 0-5 /HPF Urine Squamous Epithelial Cells Few <5 /hpf Urine Bacteria Few H None Seen /hpf Urine Glucose Normal Normal mg/dL White Blood Count 5.2 4.4-10.8 10^3/uL Red Blood Count 4.30 4.0-5.20 10^6/uL Hemoglobin 13.3 12.2-16.2 g/dL Hematocrit 39.7 36.0-46.0 % Mean Corpuscular Volume 92.2 80.0-100.0 fL Mean Corpuscular Hemoglobin 30.9 28.0-32.0 pg Mean Corpuscular Hemoglobin Concent 33.5 32.0-36.0 g/dL Red Cell Distribution Width 13.3 11.8-14.3 % Platelet Count 234 140-450 10^3/uL Mean Platelet Volume 8.7 6.9-10.8 fL Neutrophils (%) (Auto) 53.0 37.0-80.0 % Lymphocytes (%) (Auto) 35.9 10.0-50.0 % Monocytes (%) (Auto) 6.8 0.0-12.0 % Eosinophils (%) (Auto) 3.4 0.0-7.0 % Basophils (%) (Auto) 0.9 0.0-2.0 % Neutrophils # (Auto) 2.8 1.6-8.6 10 ^3/uL Lymphocytes # (Auto) 1.9 0.4-5.4 10 ^3/uL Monocytes # (Auto) 0.4 0-1.3 10 ^3/uL Eosinophils # (Auto) 0.2 0-0.8 10 ^3/uL Basophils # (Auto) 0 0-0.2 10 ^3/uL Nucleated Red Blood Cells 0.2 % Sodium Level 141 136-145 mmol/L Potassium Level 4.2 3.5-5.1 mmol/L Chloride Level 104 98-107 mmol/L Carbon Dioxide Level 31 20-31 mmol/L Anion Gap 6 5-15 Blood Urea Nitrogen 20 9-23 mg/dL Creatinine 1.09 H 0.550-1.02 mg/dL Glomerular Filtration Rate Calc 55 >90 mL/min BUN/Creatinine Ratio 18.3 10.0-20.0 Serum Glucose 178 H 74-106 mg/dL Calcium Level 9.8 8.7-10.4 mg/dL Magnesium Level 1.7 1.6-2.6 mg/dL Total Bilirubin 0.7 0.2-1.0 mg/dL Aspartate Amino Transferase (AST) 19 13-40 U/L Alanine Aminotransferase (ALT) 25 7-40 U/L Alkaline Phosphatase 72 46-116 U/L B-Type Natriuretic Peptide 345.58 0-100 pg/mL Total Protein 6.3 5.7-8.2 g/dL Albumin 3.9 3.2-4.8 g/dL Assessment/Plan Assessment/Plan Acute exacerbation of heart failure with reduced ejection fraction, EF 20% on echocardiogram in 2022 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 Hypertension Dyslipidemia - CXR: Cardiomegaly. No acute cardiopulmonary disease. -BNP 345 - echocardiogram from 2022 shows markedly diminished systolic function with EF 25% and severe global hypokinesis. [id number] aortic insufficiency and mild tricuspid regurgitation. RVSP 43. - ordered repeat echocardiogram - IV furosemide 40 mg b.i.d. - therapeutic Lovenox - resumed home medication metoprolol - resumed home medication Entresto - consulted cardiology Acute complicated UTI - IV ceftriaxone daily History of asthma, currently stable - monitor Type 2 diabetes - BG 178 - ordered A1c - monitor Obesity - counseled Goals of care: Full code, discussed for >16 minutes on 12/08/2024 Plan discussed with patient Plan discussed with Dr. Sylvester Plan discussed with: Patient, Other (RN) My Orders Orders - CHANNING SANCHEZ RESIDENT Procedure Category Date Status Time Admit ADMIT 12/08/24 Transmitted 22:23 Allergies ROE 12/08/24 In Process 22:23 Code Status CODE 12/08/24 Transmitted 22:23 Acetaminophen Tablet PHA 12/08/24 Logged (Tylenol Tablet) 22:30 Ondansetron Hcl PHA 12/08/24 Logged (Zofran) 22:30 Docusate Sodium PHA 12/08/24 Logged Capsule (Colace 22:30 Enoxaparin Sodium PHA 12/09/24 Logged (Lovenox) 10:00 Complete Blood Count LAB 12/09/24 Verified 04:00 Comprehensive LAB 12/09/24 Verified Metabolic Panel 04:00 Cardiac DIET 12/09/24 Transmitted Diet-2gna,Lofat,Lochol Breakfast Pt Request For Service PT 12/08/24 Logged 22:23 Echo 2d Mode Cardiac US 12/08/24 Logged DOP 22:23 Condition: Unstable ROE 12/08/24 In Process 22:23 Notify Of Changes ROE 12/08/24 In Process From Base 22:23 Electrocardigram EKG 12/08/24 Logged 22:23 Furosemide Injection PHA 12/08/24 Logged (Lasix Injection) 22:30 Furosemide Injection PHA 12/09/24 Logged (Lasix Injection) 06:00 Maintain Fluid ROE 12/08/24 In Process Restrictions 22:23 Copy Of Previous Echo ROE 12/08/24 In Process Report T 22:23 Strict I & O ROE 12/08/24 In Process 22:23 Teach: Heart Failure ROE 12/08/24 In Process 22:23 Thyroid Stimulating LAB 12/08/24 Logged Hormone 22:23 Urinalysis LAB 12/08/24 Logged 22:23 Hepatic Panel LAB 12/08/24 Logged 22:23 Magnesium LAB 12/08/24 Logged 22:23 * Cardiology Consult CONS 12/08/24 Transmitted 22:23 Covid19 Antigen Mckenna LAB 12/08/24 Logged Rapid Influenza A&B LAB 12/08/24 Logged 22:23 Enoxaparin Sodium PHA 12/09/24 Verified (Lovenox) 10:00 Date of Service: December 08, 2024 Billing Provider: OBI SYLVESTER MD Common Visit Codes: [id number] INP/OBS CARE (HIGH) CHANNING SANCHEZ RESIDENT December 08, 2024 22:50
[2024-12-08] MEDS: FUROSEMIDE 40 MG/4 ML VIAL IV ONE (23:15)
--- NOTE | 2024-12-08 23:59 | DVHINCON2 ---
Date of service: December 08, 2024 Referring Physician Nisreen Reason for Consultation AICD fired yesterday History of Present Illness This is a 61-year-old female with a past medical history of Chagas cardiomyopathy, heart failure with reduced ejection fraction 20%, atrial fibrillation on Eliquis, hypertension, hyperlipidemia, s/p AICD placement in 2022, asthma who presented to the ED with a complaint of feeling her AICD firing.Patient reports that yesterday she felt a shock from her AICD around 7:00 a.m. shortly after taking her morning antihypertensive medications. BNP 345, TROP is negative x 3. Chest x-ray shows cardiomegaly. Echocardiogram from 2022 shows markedly diminished systolic function with EF 25% and severe global hypokinesis. Kcvr-oc-kljlydea aortic insufficiency and mild tricuspid regurgitat ion. RVSP 43. Patient was admitted to the hospital. I am asked to consult on this patient Family History: FH: cancer FHx: lung cancer G8 MOTHER, Allergies: Coded Allergies: NO KNOWN ALLERGIES (Unverified , 04/21/14) Home Meds Active Scripts Albuterol Sulfate (Albuterol Sulfate) 0.083 % Neb, 1 VIAL NEB Q4HPRN PRN for 7 Days, #50 VIAL Prov:JIA MINAYA ART APPRAISER 09/04/24 Prednisone (Prednisone) 20 Mg Tab, 40 MG PO DAILY@BREAKFAST for 5 Days, #4 MG Prov:JIA MINAYA ART APPRAISER 09/04/24 Amoxicillin & Pot Clavulanate (AUGMENTIN TABLET) 875 Mg Tb, 875 MG PO BID for 7 Days, #14 TAB Prov:JIA MINAYA ART APPRAISER 09/04/24 Azithromycin (ZITHROMAX TABLET) 250 Mg Tb, 250 MG PO DAILY for 5 Days, #6 TAB 0 Refills Take 2 tablets on the first day then take 1 tablet daily for the next 4 days Prov:DELMIS HOGUE NP 05/04/23 Beclomethasone Dipropionate (Qvar Redihaler) 40 Mcg/Act Aer, 40 MCG IN Q12HR for 30 Days, #1 KIT 0 Refills Prov:DELMIS HOGUE NP 05/04/23 Reported Medications Ibuprofen Micronized (Ibuprofen) 400 Mg Tab, 1 TAB PO TID 07/11/23 Metoprolol Tartrate (LOPRESSOR TABLET) 50 Mg Tb, 1 TAB PO BID 07/11/23 Valsartan (Valsartan) 160 Mg Tab, 1 TAB PO DAILY 07/11/23 Current Medications Current Medications Medications (Trade) Dose Ordered Sig/Umer Route PRN Reason Start Time Stop Time Status Last Admin Acetaminophen (Tylenol Tablet) 325 mg Q4HP PRN PO MILD PAIN (1-3 PAIN SCALE) 12/08/24 22:30 Ondansetron HCl (Zofran) 4 mg Q4HP PRN IV NAUSEA / VOMITING 12/08/24 22:30 Docusate Sodium (Colace Capsule) 100 mg BIDPRN PRN PO FOR CONSTIPATION 12/08/24 22:30 Enoxaparin Sodium (Lovenox) 40 mg DAILY SC 12/09/24 10:00 12/08/24 22:33 DC Furosemide (Lasix Injection) 40 mg BIDD IV 12/09/24 06:00 Enoxaparin Sodium (Lovenox) 90 mg Q12HR SC 12/09/24 10:00 Metoprolol Tartrate (Lopressor Tablet) 50 mg BID PO 12/09/24 10:00 Valsartan (Diovan) 160 mg DAILY PO 12/09/24 10:00 Ceftriaxone Sodium 50 ml @ 100 mls/hr DAILY@09 IV 12/09/24 09:00 Review of Systems CONSTITUTIONAL:Denies acute: fever, diaphoresis, chills, HEAD:Denies acute: headache, photophobia Eyes:Denies acute: Double vision, vision loss, eye pain, eye discharge. EARS: Denies acute: tinnitus, hearing loss, ear discharge, ear pain, THROAT: Denies acute: sore throat, swelling, difficulty swallowing , pain with swallowing, change in voice. NECK:Denies acute: neck pain, neck swelling, stiff neck. HEART:Denies acute : chest pain, LUNGS:Denies acute: wheezing, cough, hemoptysis ABDOMEN:Denies acute: abdominal pain, Nausea, Vomiting, diarrhea, melena , hematemesis, hematochezia. Obese SKIN:Denies acute: rash, redness, lesions, itchiness. EXTREMITIES:Denies acute: calf pain, numbness, tingling, weakness, denies pain in extremity.Denies acute: Low back pain. Neuro:Denies acute: focal neurological deficit, motor or sensory focal neurological deficit, tremors, seizure like activity, confusion, dizziness, change in mental status, loss of bowel or bladder function, cauda equina like symptoms. : Denies acute: dysuria, hematuria, flank pain, increase in urinary frequency. PSYCH: Denies acute: hallucination, suicidal ideation, homicidal ideation. FEMALE: Denies acute: abnormal vaginal bleeding, foul odor, unusual discharge. Vital Signs Vital Signs Date Time Temp Pulse Resp B/P (MAP) Pulse Ox O2 Delivery O2 Flow Rate FiO2 12/08/24 23:15 147/55 12/08/24 23:00 98.1 106 17 95 98.1 12/08/24 18:20 Room Air 12/08/24 13:55 0 21 Physical Exam GENERAL: Alert and oriented x 3. No acute distress. EYES: PERRL, EOMI. Anicteric. HENT: Moist mucous membranes. LUNGS: Clear to auscultation bilaterally. CARDIOVASCULAR: Regular rate and rhythm. ABDOMEN: Soft, nontender and nondistended. EXTREMITIES: BLE edema. NEUROLOGIC: No focal neurological deficits. SKIN: Warm, dry. Labs/Diagnostic Data Labs Test 12/08/24 14:36 12/08/24 14:33 12/08/24 11:44 12/08/24 11:40 Range/Units Troponin I High Sensitivity 23 </=34 ng/L Blood Gas Specimen Type Arterial Blood Gas Sample Site Right radial Blood Gas Patient Temperature 37.0 Arterial Blood Date Drawn [id number] Arterial Blood pH 7.430 7.350-7.450 Arterial Blood Partial Pressure CO2 36.3 32.0-45.0 mmHg Arterial Blood Partial Pressure O2 70.4 L 83.0-108.0 mmHg Arterial Blood HCO3 23.6 21.0-28.0 mmol/L Arterial Blood Oxygen Saturation 94.0 94.0-98.0 % Arterial Blood Base Excess -0.3 -2.0-3.0 mmol/L Arterial Blood Oxyhemoglobin 93.2 L 94.0-98.0 % Arterial Blood Carboxyhemoglobin 0.4 L 0.5-1.5 % Arterial Blood Methemoglobin 0.4 0.0-1.5 % Ritesh Test Yes Blood Gas Total Hemoglobin 14.20 12.0-16.0 g/dL Blood Gas Modality Room air FiO2 % 21.0 Urine Color Light-yellow Yellow Urine Clarity Clear Clear Urine pH 6.0 5.0-9.0 Urine Specific [place] 1.009 1.001-1.035 Urine Protein Negative Negative Urine Ketones Negative Negative Urine Blood Negative Negative /uL Urine Nitrite Negative Negative Urine Bilirubin Negative Negative Urine Urobilinogen Normal Negative mg/dL Urine Leukocyte Esterase 2+ Negative /uL Urine RBC 1 0 - 4 /hpf Urine Microscopic WBC 7 H 0-5 /HPF Urine Squamous Epithelial Cells Few <5 /hpf Urine Bacteria Few H None Seen /hpf Urine Glucose Normal Normal mg/dL White Blood Count 5.2 4.4-10.8 10^3/uL Red Blood Count 4.30 4.0-5.20 10^6/uL Hemoglobin 13.3 12.2-16.2 g/dL Hematocrit 39.7 36.0-46.0 % Mean Corpuscular Volume 92.2 80.0-100.0 fL Mean Corpuscular Hemoglobin 30.9 28.0-32.0 pg Mean Corpuscular Hemoglobin Concent 33.5 32.0-36.0 g/dL Red Cell Distribution Width 13.3 11.8-14.3 % Platelet Count 234 140-450 10^3/uL Mean Platelet Volume 8.7 6.9-10.8 fL Neutrophils (%) (Auto) 53.0 37.0-80.0 % Lymphocytes (%) (Auto) 35.9 10.0-50.0 % Monocytes (%) (Auto) 6.8 0.0-12.0 % Eosinophils (%) (Auto) 3.4 0.0-7.0 % Basophils (%) (Auto) 0.9 0.0-2.0 % Neutrophils # (Auto) 2.8 1.6-8.6 10 ^3/uL Lymphocytes # (Auto) 1.9 0.4-5.4 10 ^3/uL Monocytes # (Auto) 0.4 0-1.3 10 ^3/uL Eosinophils # (Auto) 0.2 0-0.8 10 ^3/uL Basophils # (Auto) 0 0-0.2 10 ^3/uL Nucleated Red Blood Cells 0.2 % Sodium Level 141 136-145 mmol/L Potassium Level 4.2 3.5-5.1 mmol/L Chloride Level 104 98-107 mmol/L Carbon Dioxide Level 31 20-31 mmol/L Anion Gap 6 5-15 Blood Urea Nitrogen 20 9-23 mg/dL Creatinine 1.09 H 0.550-1.02 mg/dL Glomerular Filtration Rate Calc 55 >90 mL/min BUN/Creatinine Ratio 18.3 10.0-20.0 Serum Glucose 178 H 74-106 mg/dL Calcium Level 9.8 8.7-10.4 mg/dL B-Type Natriuretic Peptide 345.58 0-100 pg/mL Assessment Acute exacerbation of heart failure with reduced ejection fraction, EF 20% on echocardiogram in 2022. 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 History of atrial fibrillation. S/p AICD. Hypertension. Acute complicated UTI. History of asthma. Type 2 diabetes. Obesity. Plan/Recommendation I agree with your ongoing assessment and care of plan. Echocardiogram. IV antibiotics as ordered. DVT prophylactics. Diuretics with Lasix. Metoprolol. Additional plan as per the hospital course. A total of 45 minutes was spent reviewing the patient record, examining the patient, making a diagnostic and therapeutic plan, discussing this plan with medical personnel, following up on diagnostic studies and following the patient for clinical stability excluding any and all procedures. At least 50% of this time was spent in direct, [id number] contact. Plan discussed with: Patient MIKE GRANADOS MD December 08, 2024 23:50
[2024-12-09] VITALS (9 sets, daily range): BP systolic 99–127; BP diastolic 35–83; PULSE 66–117; RESP 12–19; TEMP 97.9–98.6; O2SAT 92–98
[2024-12-09 00:11] LABS: Bilirubin, Direct 0.2 mg/dL (<0.3); Bilirubin, Total 0.5 mg/dL (0.2-1.0); Magnesium 1.7 mg/dL (1.6-2.6); Total Protein 6.7 g/dL (5.7-8.2)
[2024-12-09 01:01] LABS: Folate (Folic Acid) 16.55 ng/mL (>5.38)
[2024-12-09 02:07] LABS: COVID19 ANTIGEN SOFIA FIA NEGATIVE (NEGATIVE); Rapid Influenza A Negative (Negative); Rapid Influenza B Negative (Negative)
[2024-12-09 04:01] LABS: Basophils # (auto) 0.1 10 ^3/uL (0-0.2); Basophils % (auto) 0.8 % (0.0-2.0); Eosinophils # (auto) 0.2 10 ^3/uL (0-0.8); Eosinophils % (auto) 3.2 % (0.0-7.0); Hematocrit 41.3 % (36.0-46.0); Hemoglobin 13.8 g/dL (12.2-16.2); Lymphocytes # (auto) 2.3 10 ^3/uL (0.4-5.4); Lymphocytes % (auto) 33.9 % (10.0-50.0); Mean Corpuscular Hemoglobin 30.8 pg (28.0-32.0); Mean Corpuscular Hgb Conc. 33.3 g/dL (32.0-36.0); Mean Corpuscular Volume 92.2 fL (80.0-100.0); Monocytes # (auto) 0.7 10 ^3/uL (0-1.3); Monocytes % (auto) 9.9 % (0.0-12.0); Neutrophils # (auto) 3.6 10 ^3/uL (1.6-8.6); Neutrophils % (auto) 52.2 % (37.0-80.0); Nucleated Red Blood Cells % 0.2 %; Platelet Count (auto) 256 10^3/uL (140-450); Red Blood Cells 4.48 10^6/uL (4.0-5.20); Red Cell Distribution Width 13.4 % (11.8-14.3); White Blood Cell 6.9 10^3/uL (4.4-10.8)
[2024-12-09 04:16] LABS: Alanine Aminotransferase 22 U/L (7-40); Albumin 4.1 g/dL (3.2-4.8); Alkaline Phosphatase 70 U/L (46-116); Anion Gap 7 (5-15); Aspartate Aminotransferase 18 U/L (13-40); BUN/Creatinine Ratio 18.1 (10.0-20.0); Blood Urea Nitrogen 21 mg/dL (9-23); Calcium 9.6 mg/dL (8.7-10.4); Carbon Dioxide 30 mmol/L (20-31); Chloride 103 mmol/L (98-107); Glucose 93 mg/dL (74-106); Sodium 140 mmol/L (136-145); Total Protein 6.9 g/dL (5.7-8.2)
[2024-12-09 04:17] LABS: Bilirubin, Total 0.5 mg/dL (0.2-1.0)
[2024-12-09] MEDS: FUROSEMIDE 40 MG/4 ML VIAL IV SCH (06:13)
--- NOTE | 2024-12-09 07:51 | DVHPNRES ---
Progress Note Date Seen: December 09, 2024 Resident Creating Document: NEEMA SENA RESIDENT Has the PT tested + for MRSA If YES, has PT been informed?: No Medical Necessity Reason Pt with a Central, PICC or Fol: No Subjective Review of Systems Patient is a 61-year-old female with past medical history of Chagas cardiomyopathy, heart failure with reduced ejection fraction 20%, atrial fibrillation on Eliquis, hypertension, hyperlipidemia, s/p AICD placement in 2022, asthma, who comes in after feeling her AICD vibrating/ramping. According to the patient, yesterday she felt a shock from her AICD around 7:00 a.m. shortly after taking her morning antihypertensive medications. Denies ever having similar symptoms in the past. Per patient, she received AICD placement in 2022 due to her heart rate being very low in the 20s and she very well knows how to differentiate between AICD firing versus ramping up before firing. Patient subsequently called her continuous improvement coordinator's office and was told to come to the ER. On review of systems patient is complaining of dyspnea class 3 which has been stable over the last 1 year, fatigue, cough, severe generalized weakness. Initial lab workup revealed HGB A1c 6.0, serum BNP was 345 and serial troponins were 25, 24, 23. Urinalysis leukocyte esterase 1+, WBC 7, bacteria few. Patient tested negative for influenza type a and B and COVID-19. Chest x- ray showed cardiomegaly. According to the patient, sometimes she is nonadherent to medication and she also gave her metoprolol and verquvo to her sister when she was visiting [place] so she has been out of medications. PMH-Chagas cardiomyopathy, heart failure with reduced ejection fraction 20%, atrial fibrillation on Eliquis, hypertension, hyperlipidemia, s/p AICD placement in 2022, asthma PSH- Cystocele repair, hernia repair, AICD placement. Allergy- NKDA Personal History/ Social History- denies smoking/alcoholism/drug abuse Home medications metoprolol 50 mg b.i.d., Entresto, dabigatran,Verquovo Patient was seen today at the bedside. Patient Gastrointestinal- denies any rectal bleeding, nausea or vomiting Musculoskeletal-denies acute joint swelling or tenderness or redness Neurological- denies acute dysarthria, dysphagia, change in vision Psychiatry- denies depression or SI or HI Skin- denies acute rash or purpura Patient Was seen today for clinical evaluation. Labs and chart reviewed. Patient was seen by Dr. Le continuous improvement coordinator, recommendation reviewed and appreciated. Ordered for AICD interrogation. Objective vital signs Vital Sign Date Time Temp Pulse Resp B/P (MAP) Pulse Ox O2 Delivery O2 Flow Rate FiO2 12/09/24 06:13 125/49 12/09/24 05:00 98.3 112 19 96 98.3 12/09/24 02:56 Room Air* 0 21 Total Intake and Output 12/08/24 12/08/24 12/09/24 15:00 23:00 07:00 Intake Total 50 ml 50 ml Balance 50 ml 50 ml medications Current Medications Medications Dose Ordered Sig/Umer Route Start Time Stop Time Status Last Admin Dose Admin Acetaminophen 325 mg Q4HP PRN PO 12/08/24 22:30 Ondansetron HCl 4 mg Q4HP PRN IV 12/08/24 22:30 Docusate Sodium 100 mg BIDPRN PRN PO 12/08/24 22:30 Furosemide 40 mg BIDD IV 12/09/24 06:00 12/09/24 06:13 40 MG Enoxaparin Sodium 90 mg Q12HR SC 12/09/24 10:00 Metoprolol Tartrate 50 mg BID PO 12/09/24 10:00 Ceftriaxone Sodium 50 ml @ 100 mls/hr DAILY@09 IV 12/09/24 09:00 Sacubitril/ Valsartan 1 tab BID PO 12/09/24 10:00 Examination General examination- awake, alert, oriented HEENT- PEERLA, no acute nasal discharge Cardiovascular- S1-S2 audible, rate and rhythm regular, no murmur Respiratory-lung crackles+ Gastrointestinal-nontender, bowel sound+. 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 Hypertension Dyslipidemia - CXR: Cardiomegaly. No acute cardiopulmonary disease. -BNP 345 - echocardiogram from 2022 shows markedly diminished systolic function with EF 25% and severe global hypokinesis. [id number]-tf-ienyqadq aortic insufficiency and mild tricuspid regurgitation. RVSP 43. - ordered repeat echocardiogram - IV furosemide 40 mg b.i.d. - therapeutic Lovenox - resumed home medication metoprolol - resumed home medication Entresto - consulted cardiology Acute complicated UTI - IV ceftriaxone daily History of asthma, currently stable - monitor Type 2 diabetes - BG 178 - ordered A1c - monitor Obesity - counseled Goals of care, Code status ; discussed with >15 minutes PUD prophylaxis: Pantoprazole DVT prophylaxis: Lovenox Plan discussed with Dr. Cannon , nursing staff, Total time spent on patient evaluation, chart review, assessment and plan, discussion discussion >35 minutes Plan discussed with: Patient, Other (RN) Date of Service: December 09, 2024 Billing Provider: NICOLÁS CANNON DO Common Visit Codes: [id number] INP/OBS CARE(HIGH) NEEMA SENA RESIDENT December 09, 2024 07:51 NICOLÁS CANNON DO December 09, 2024 15:03
[2024-12-09 08:31] LABS: Urine Bacteria None Seen /hpf (None Seen)
[2024-12-09 08:35] LABS: Urine Blood Negative /uL (Negative); Urine Clarity Clear (Clear); Urine Color Colorless (Yellow); Urine Protein, UAD Negative (Negative); Urine Specific Gravity 1.006 (1.001-1.035); Urine Squamous Epithelial Cell FEW /hpf (<5); Urine Urobilinogen Normal (Negative); Urine WBC < 1 /HPF (0-5); Urine pH 6.5 (5.0-9.0)
[2024-12-09 08:48] LABS: Amphetamine Screen, Urine Neg (NEGATIVE); Barbiturate Scree,Urine Neg (NEGATIVE); Benzodiazephine Screen, Urine Neg (NEGATIVE); Cannabinoid Screen, Urine Neg (NEGATIVE); Cocaine Screen, Urine Neg (NEGATIVE); Opiate Scree,Urine Neg (NEGATIVE); Phencyclidine Screen, Urine Neg (NEGATIVE)
[2024-12-09] MEDS ORDERED: ENOXAPARIN SOD 40 MG/0.4 ML SYRINGE SC SCH (10:00)
[2024-12-09] MEDS ORDERED: VALSARTAN 80 MG TAB PO SCH (10:00)
[2024-12-09] MEDS: ENOXAPARIN SOD 100 MG/1 ML SYRINGE SC SCH (11:20)
[2024-12-09] MEDS: METOPROLOL TARTRATE 50 MG TAB PO SCH (11:20)
[2024-12-09] MEDS: cefTRIAXone 1GM/50ML D5W 50 ML IV SCH (11:21)
[2024-12-09] MEDS: SACUBITRIL-VALSARTAN 24mg/26mg TAB PO SCH (11:59)
[2024-12-09] MEDS: PANTOPRAZOLE 40 MG TAB PO ONE (16:56)
--- NOTE | 2024-12-09 19:14 | DVHPN2 ---
Progress Note - Dictate Date Seen: December 09, 2024 Medical Necessity Reason Pt with a Central, PICC or Fol: No Subjective Patient was seen and evaluated in follow up. Patient's daughter is at bedside. Patient is complaining of chest pain. UDS is negative. Influenza A/B are negative. Echocardiogram is pending. Telemetry reviewed. vital signs Vital Sign Date Time Temp Pulse Resp B/P (MAP) Pulse Ox O2 Delivery O2 Flow Rate FiO2 12/09/24 09:00 98.4 117 18 127/83 (98) 92 98.4 12/09/24 02:56 Room Air* 0 21 Total Intake and Output 12/08/24 12/08/24 12/09/24 15:00 23:00 07:00 Intake Total 50 ml 50 ml Balance 50 ml 50 ml medications Current Medications Medications Dose Ordered Sig/Umer Route Start Time Stop Time Status Last Admin Dose Admin Acetaminophen 325 mg Q4HP PRN PO 12/08/24 22:30 Ondansetron HCl 4 mg Q4HP PRN IV 12/08/24 22:30 Docusate Sodium 100 mg BIDPRN PRN PO 12/08/24 22:30 Furosemide 40 mg BIDD IV 12/09/24 06:00 12/09/24 06:13 40 MG Enoxaparin Sodium 90 mg Q12HR SC 12/09/24 10:00 Metoprolol Tartrate 50 mg BID PO 12/09/24 10:00 Ceftriaxone Sodium 50 ml @ 100 mls/hr DAILY@09 IV 12/09/24 09:00 Sacubitril/ Valsartan 1 tab BID PO 12/09/24 10:00 objective GENERAL: Alert and oriented x 3. No acute distress. EYES: PERRL, EOMI. Anicteric. HENT: Moist mucous membranes. LUNGS: Clear to auscultation bilaterally. CARDIOVASCULAR: Regular rate and rhythm. ABDOMEN: Soft, nontender and nondistended. EXTREMITIES: BLE edema. NEUROLOGIC: No focal neurological deficits. SKIN: Warm, dry. laboratory and microbiology Laboratory Tests 12/09/24 03:39 Test 12/09/24 03:39 Range/Units Serum Glucose 93 74-106 mg/dL Problem List Acute exacerbation of heart failure with reduced ejection fraction, EF 20% on echocardiogram in 2022. 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 History of atrial fibrillation. S/p AICD. Hypertension. Acute complicated UTI. History of asthma. Type 2 diabetes. Obesity. Assessment/Plan Continued all current supportive medical care. Echocardiogram. IV antibiotics as ordered. DVT prophylactics. Diuretics with Lasix. Metoprolol. Additional plan as per the hospital course. Plan discussed with: Patient MIKE GRANADOS MD December 09, 2024 11:46
[2024-12-10] VITALS (9 sets, daily range): BP systolic 0–141; BP diastolic 54–96; PULSE 68–103; RESP 17–19; TEMP 97.6–98.2; O2SAT 92–96
[2024-12-10] MEDS: PANTOPRAZOLE 40 MG TAB PO SCH (05:08)
[2024-12-10 10:03] LABS: Anion Gap 8 (5-15)
[2024-12-10 10:10] LABS: Calcium 10.1 mg/dL (8.7-10.4); Carbon Dioxide 34 mmol/L (20-31); Chloride 98 mmol/L (98-107); Glucose 106 mg/dL (74-106); Potassium 3.8 mmol/L (3.5-5.1); Sodium 140 mmol/L (136-145)
[2024-12-10 10:16] LABS: BUN/Creatinine Ratio 20.2 (10.0-20.0)
[2024-12-10 10:17] LABS: Blood Urea Nitrogen 24 mg/dL (9-23)
--- NOTE | 2024-12-10 12:51 | DVHPN2 ---
Reviewed: Care Plan, H&P, Labs, Medications Changes from previous H/P or p: No Changes General: Per HPI Eyes: No Pain, No Vision change, No Conjunctivae inflammation, No Eyelid inflammation, No Other, No Redness ENT: No Ear pain, No Ear discharge, No Nose pain, No Nose discharge, No Nose congestion, No Mouth pain, No Mouth swelling, No Throat pain, No Throat swelling, No Other Cardiovascular: No Chest Pain, No Palpitations; Orthopnea, Paroxysmal Noc. Dyspnea; No Edema, No Lt Headedness, No Other Respiratory: Cough; No Dry; Shortness of breath, SOB with excertion; No Wheezing, No Hemoptysis, No Pleuritic Pain, No Sputum, No Other Gastrointestinal: No Nausea, No Vomiting, No Abdominal Pain, No Diarrhea, No Constipation, No Melena, No Hematochezia, No Other Genitourinary: No Dysuria, No Frequency, No Incontinence, No Hematuria, No Retention, No Other Musculoskeletal: No other, No neck pain, No shoulder pain, No arm pain, No back pain, No hand pain, No leg pain, No foot pain Skin: No Rash, No Lesions, No Jaundice, No Bruising, No Other Objective Vitals Vital Signs Date Time Temp Pulse Resp B/P (MAP) Pulse Ox O2 Delivery O2 Flow Rate FiO2 12/10/24 10:10 99 101/75 12/10/24 08:59 97.8 17 92 97.8 12/10/24 08:15 Room Air* 0 21 Intake/Output Intake and Output 12/10/24 07:00 Intake Total 1340 ml Balance 1340 ml Intake Oral 1290 ml IV Total 50 ml # Voids 5 General Appearance: Alert, Oriented X3, Cooperative Cardiovascular: Regular rate, Normal S1, Normal S2 Abdomen: Normal bowel sounds, Soft Medications Current Medications Medications Dose Ordered Sig/Umer Route Start Time Stop Time Status Last Admin Dose Admin Acetaminophen 325 mg Q4HP PRN PO 12/08/24 22:30 Ondansetron HCl 4 mg Q4HP PRN IV 12/08/24 22:30 Docusate Sodium 100 mg BIDPRN PRN PO 12/08/24 22:30 Enoxaparin Sodium 90 mg Q12HR SC 12/09/24 10:00 12/10/24 09:57 90 MG Metoprolol Tartrate 50 mg BID PO 12/09/24 10:00 12/10/24 10:10 50 MG Ceftriaxone Sodium 50 ml @ 100 mls/hr DAILY@09 IV 12/09/24 09:00 12/10/24 10:40 100 MLS/HR Sacubitril/ Valsartan 1 tab BID PO 12/09/24 10:00 12/10/24 09:55 1 TAB Pantoprazole Sodium 40 mg DAILY@0600 PO 12/10/24 06:00 12/10/24 05:08 40 MG Furosemide 60 mg TID IV 12/10/24 13:00 UNV Laboratory Results Laboratory Tests 12/09/24 03:39 12/10/24 09:20 Chemistry Test 12/10/24 09:20 Calcium Level 10.1 mg/dL (8.7-10.4) Urinalysis Test 12/09/24 08:15 Urine Color Colorless (Yellow) Urine Clarity Clear (Clear) Urine pH 6.5 (5.0-9.0) Urine Specific [place] 1.006 (1.001-1.035) Urine Protein Negative (Negative) Urine Ketones Negative (Negative) Urine Blood Negative /uL (Negative) Urine Nitrite Negative (Negative) Urine Bilirubin Negative (Negative) Urine Urobilinogen Normal mg/dL (Negative) Urine Leukocyte Esterase Negative /uL (Negative) Urine RBC 1 /hpf (0 - 4) Urine Microscopic WBC < 1 /HPF (0-5) Urine Squamous Epithelial Cells Few /hpf (<5) Urine Bacteria None seen /hpf (None Seen) Urine Glucose Normal mg/dL (Normal) Labs and/or images reviewed: Labs reviewed by me, Image(s) reviewed by me Assessment/Plan Assessment/Plan Acute exacerbation of heart failure with reduced ejection fraction, EF 20% on echocardiogram in 2022 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 Hypertension Acute complicated UTI History of asthma, currently stable - monitor Type 2 diabetes Obesity continue with current care Plan discussed with: Patient My Orders Orders - NICOLÁS CANNON DO Procedure Category Date Status Time Furosemide Injection PHA 12/10/24 Logged (Lasix Injection) 13:00 Metolazone (Zaroxolyn) PHA 12/10/24 Verified 13:00 Date of Service: December 10, 2024 Billing Provider: NICOLÁS CANNON DO Common Visit Codes: [id number] INP/OBS CARE(HIGH) NICOLÁS CANNON DO December 10, 2024 12:51
[2024-12-10] MEDS: FUROSEMIDE 40 MG/4 ML VIAL IV SCH (13:00)
[2024-12-10] MEDS: metOLazone 5 MG TAB PO ONE (13:00)
--- NOTE | 2024-12-10 15:23 | DVHPN2 ---
Progress Note - Dictate Date Seen: December 10, 2024 Has the PT tested + for MRSA If YES, has PT been informed?: No Medical Necessity Reason Pt with a Central, PICC or Fol: No Subjective Patient was seen and evaluated in follow up. Patient is complaining of chest pain with SOB. CO2 34, BUN 24, HOOP CUTTER 1.19. Echo is still pending. Telemetry reviewed. vital signs Vital Sign Date Time Temp Pulse Resp B/P (MAP) Pulse Ox O2 Delivery O2 Flow Rate FiO2 12/10/24 10:10 99 101/75 12/10/24 08:59 97.8 17 92 97.8 12/09/24 20:00 Room Air* 0 21 Total Intake and Output 12/09/24 12/09/24 12/10/24 15:00 23:00 07:00 Intake Total 590 ml 250 ml 500 ml Balance 590 ml 250 ml 500 ml medications Current Medications Medications Dose Ordered Sig/Umer Route Start Time Stop Time Status Last Admin Dose Admin Acetaminophen 325 mg Q4HP PRN PO 12/08/24 22:30 Ondansetron HCl 4 mg Q4HP PRN IV 12/08/24 22:30 Docusate Sodium 100 mg BIDPRN PRN PO 12/08/24 22:30 Furosemide 40 mg BIDD IV 12/09/24 06:00 12/10/24 05:09 40 MG Enoxaparin Sodium 90 mg Q12HR SC 12/09/24 10:00 12/10/24 09:57 90 MG Metoprolol Tartrate 50 mg BID PO 12/09/24 10:00 12/10/24 10:10 50 MG Ceftriaxone Sodium 50 ml @ 100 mls/hr DAILY@09 IV 12/09/24 09:00 12/10/24 10:40 100 MLS/HR Sacubitril/ Valsartan 1 tab BID PO 12/09/24 10:00 12/10/24 09:55 1 TAB Pantoprazole Sodium 40 mg DAILY@0600 PO 12/10/24 06:00 12/10/24 05:08 40 MG objective GENERAL: Alert and oriented x 3. No acute distress. EYES: PERRL, EOMI. Anicteric. HENT: Moist mucous membranes. LUNGS: Clear to auscultation bilaterally. CARDIOVASCULAR: Regular rate and rhythm. ABDOMEN: Soft, nontender and nondistended. EXTREMITIES: BLE edema. NEUROLOGIC: No focal neurological deficits. SKIN: Warm, dry. laboratory and microbiology Laboratory Tests 12/10/24 09:20 12/09/24 03:39 Test 12/10/24 09:20 Range/Units Serum Glucose 106 74-106 mg/dL Problem List Acute exacerbation of heart failure with reduced ejection fraction, EF 20% on echocardiogram in 2022. 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 History of atrial fibrillation. S/p AICD. Hypertension. Acute complicated UTI. History of asthma. Type 2 diabetes. Obesity. Assessment/Plan Continued all current supportive medical care. Echocardiogram. IV antibiotics as ordered. DVT prophylactics. Diuretics with Lasix. Metoprolol. Additional plan as per the hospital course. Plan discussed with: Patient MIKE GRANADOS MD December 10, 2024 12:03
[2024-12-11] VITALS (9 sets, daily range): BP systolic 0–148; BP diastolic 56–84; PULSE 69–105; RESP 16–19; TEMP 97.6–98.2; O2SAT 91–97
[2024-12-11] MEDS: metOLazone 5 MG TAB PO ONE (11:53)
--- NOTE | 2024-12-11 13:01 | DVHPN2 ---
Progress Note Date Seen: December 11, 2024 Resident Creating Document: NEEMA SENA RESIDENT Has the PT tested + for MRSA If YES, has PT been informed?: No Medical Necessity Reason Pt with a Central, PICC or Fol: No Subjective Review of Systems Patient is a 61-year-old female with past medical history of Chagas cardiomyopathy, heart failure with reduced ejection fraction 20%, atrial fibrillation on Eliquis, hypertension, hyperlipidemia, s/p AICD placement in 2022, asthma, who comes in after feeling her AICD vibrating/ramping. According to the patient, yesterday she felt a shock from her AICD around 7:00 a.m. shortly after taking her morning antihypertensive medications. Denies ever having similar symptoms in the past. Per patient, she received AICD placement in 2022 due to her heart rate being very low in the 20s and she very well knows how to differentiate between AICD firing versus ramping up before firing. Patient subsequently called her ethical hacker's office and was told to come to the ER. On review of systems patient is complaining of dyspnea class 3 which has been stable over the last 1 year, fatigue, cough, severe generalized weakness. Initial lab workup revealed HGB A1c 6.0, serum BNP was 345 and serial troponins were 25, 24, 23. Urinalysis leukocyte esterase 1+, WBC 7, bacteria few. Patient tested negative for influenza type a and B and COVID-19. Chest x- ray showed cardiomegaly. According to the patient, sometimes she is nonadherent to medication and she also gave her metoprolol and verquvo to her sister when she was visiting [place] so she has been out of medications. PMH-Chagas cardiomyopathy, heart failure with reduced ejection fraction 20%, atrial fibrillation on Eliquis, hypertension, hyperlipidemia, s/p AICD placement in 2022, asthma PSH- Cystocele repair, hernia repair, AICD placement. Allergy- NKDA Personal History/ Social History- denies smoking/alcoholism/drug abuse Home medications metoprolol 50 mg b.i.d., Entresto, dabigatran,Verquovo Patient was seen today at the bedside. Patient Gastrointestinal- denies any rectal bleeding, nausea or vomiting Musculoskeletal-denies acute joint swelling or tenderness or redness Neurological- denies acute dysarthria, dysphagia, change in vision Psychiatry- denies depression or SI or HI Skin- denies acute rash or purpura Patient Was seen today for clinical evaluation. Labs and chart reviewed. P atient's blood pressure runs of decrease Lasix from 60 mg t.i.d. to 40 mg t.i.d. cardiology recommendation reviewed and appreciated. Pending echo 2D report. Objective vital signs Vital Sign Date Time Temp Pulse Resp B/P (MAP) Pulse Ox O2 Delivery O2 Flow Rate FiO2 12/11/24 12:16 118/56 12/11/24 11:03 58 12/11/24 09:00 98.1 19 91 98.1 12/10/24 20:00 Room Air* 0 21 Total Intake and Output 12/10/24 12/10/24 12/11/24 15:00 23:00 07:00 Intake Total 50 ml 500 ml 420 ml Output Total 1100 ml Balance 50 ml -600 ml 420 ml medications Current Medications Medications Dose Ordered Sig/Umer Route Start Time Stop Time Status Last Admin Dose Admin Acetaminophen 325 mg Q4HP PRN PO 12/08/24 22:30 Ondansetron HCl 4 mg Q4HP PRN IV 12/08/24 22:30 Docusate Sodium 100 mg BIDPRN PRN PO 12/08/24 22:30 Enoxaparin Sodium 90 mg Q12HR SC 12/09/24 10:00 12/11/24 09:55 90 MG Metoprolol Tartrate 50 mg BID PO 12/09/24 10:00 12/11/24 10:03 50 MG Ceftriaxone Sodium 50 ml @ 100 mls/hr DAILY@09 IV 12/09/24 09:00 12/11/24 09:50 100 MLS/HR Sacubitril/ Valsartan 1 tab BID PO 12/09/24 10:00 12/11/24 10:01 1 TAB Pantoprazole Sodium 40 mg DAILY@0600 PO 12/10/24 06:00 12/11/24 05:47 40 MG Furosemide 40 mg TID@0600,1200,1800 IV 12/11/24 18:00 Examination General examination- awake, alert, oriented HEENT- PEERLA, no acute nasal discharge Cardiovascular- S1-S2 audible, rate and rhythm regular, no murmur Respiratory-lung crackles+ Gastrointestinal-nontender, bowel sound+. Nondistended Musculoskeletal-no acute joint swelling or tenderness or redness Lower extremity- leg edema subsided Neurological- cranial nerves intact, no acute dysarthria or dysphagia Psychiatry- denies depression or SI or HI Skin- no acute rash or purpura laboratory and microbiology Laboratory Tests 12/10/24 09:20 12/09/24 03:39 Test 12/10/24 09:20 Range/Units Serum Glucose 106 74-106 mg/dL Problem List/Assessment/Plan Problem List/Assessment/Plan Assessment and plan-patient has dealt cardiomyopathy due to check as disease, came due to AICD firing, pending AICD interrogation, pending echo 2D report, decrease Lasix from 60-40 mg b.i.d. as patient's blood pressure is running soft. 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 Hypertension Dyslipidemia - CXR: Cardiomegaly. No acute cardiopulmonary disease. -BNP 345 -pending repeat echo 2D report - echocardiogram from 2022 shows markedly diminished systolic function with EF 25% and severe global hypokinesis. [id number] aortic insufficiency and mild tricuspid regurgitation. RVSP 43. - ordered repeat echocardiogram - IV furosemide 40 mg t.i.d. - therapeutic Lovenox - resumed home medication metoprolol - resumed home medication Entresto - consulted cardiology Acute complicated UTI - IV ceftriaxone daily Pending NC History of asthma, currently stable - monitor Type 2 diabetes - BG 178 - ordered A1c - monitor Obesity - counseled Goals of care, Code status ; discussed with >15 minutes PUD prophylaxis: Pantoprazole DVT prophylaxis: Lovenox Plan discussed with Dr. Cannon , nursing staff, Total time spent on patient evaluation, chart review, assessment and plan, discussion discussion >35 minutes Plan discussed with: Patient, Other (RN) My Orders My Orders Orders - NEEMA SENA RESIDENT Procedure Category Date Status Time Pt Request For Service PT 12/11/24 Logged 10:58 Furosemide Injection PHA 12/11/24 In Process (Lasix Injection) 18:00 Date of Service: December 11, 2024 Billing Provider: NICOLÁS CANNON DO Common Visit Codes: [id number] INP/OBS CARE(HIGH) NEEMA SENA RESIDENT December 11, 2024 13:01 NICOLÁS CANNON DO December 12, 2024 17:23
[2024-12-11] MEDS: FUROSEMIDE 40 MG/4 ML VIAL IV SCH (17:45)
--- NOTE | 2024-12-11 21:55 | DVHPN2 ---
Progress Note - Dictate Date Seen: December 11, 2024 Has the PT tested + for MRSA If YES, has PT been informed?: No Medical Necessity Reason Pt with a Central, PICC or Fol: No Subjective Patient was seen and evaluated in follow up. No overnight events. Patient denies nay pain or discomfort. Echo is pending. Telemetry reviewed. vital signs Vital Sign Date Time Temp Pulse Resp B/P (MAP) Pulse Ox O2 Delivery O2 Flow Rate FiO2 12/11/24 12:16 118/56 12/11/24 11:03 58 12/11/24 09:00 98.1 19 91 98.1 12/10/24 20:00 Room Air* 0 21 Total Intake and Output 12/10/24 12/10/24 12/11/24 15:00 23:00 07:00 Intake Total 50 ml 500 ml 420 ml Output Total 1100 ml Balance 50 ml -600 ml 420 ml medications Current Medications Medications Dose Ordered Sig/Umer Route Start Time Stop Time Status Last Admin Dose Admin Acetaminophen 325 mg Q4HP PRN PO 12/08/24 22:30 Ondansetron HCl 4 mg Q4HP PRN IV 12/08/24 22:30 Docusate Sodium 100 mg BIDPRN PRN PO 12/08/24 22:30 Enoxaparin Sodium 90 mg Q12HR SC 12/09/24 10:00 12/11/24 09:55 90 MG Metoprolol Tartrate 50 mg BID PO 12/09/24 10:00 12/11/24 10:03 50 MG Ceftriaxone Sodium 50 ml @ 100 mls/hr DAILY@09 IV 12/09/24 09:00 12/11/24 09:50 100 MLS/HR Sacubitril/ Valsartan 1 tab BID PO 12/09/24 10:00 12/11/24 10:01 1 TAB Pantoprazole Sodium 40 mg DAILY@0600 PO 12/10/24 06:00 12/11/24 05:47 40 MG Furosemide 40 mg TID@0600,1200,1800 IV 12/11/24 18:00 objective GENERAL: Alert and oriented x 3. No acute distress. EYES: PERRL, EOMI. Anicteric. HENT: Moist mucous membranes. LUNGS: Clear to auscultation bilaterally. CARDIOVASCULAR: Regular rate and rhythm. ABDOMEN: Soft, nontender and nondistended. EXTREMITIES: BLE edema. NEUROLOGIC: No focal neurological deficits. SKIN: Warm, dry. laboratory and microbiology Laboratory Tests 12/10/24 09:20 12/09/24 03:39 Test 12/10/24 09:20 Range/Units Serum Glucose 106 74-106 mg/dL Problem List Acute exacerbation of heart failure with reduced ejection fraction, EF 20% on echocardiogram in 2022. 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 History of atrial fibrillation. S/p AICD. Hypertension. Acute complicated UTI. History of asthma. Type 2 diabetes. Obesity. Assessment/Plan Continued all current supportive medical care. IV antibiotics as ordered. DVT and GI prophylactics. Diuretics with Lasix. Metoprolol. Entresto. Additional plan as per the hospital course. Plan discussed with: Patient MIKE GRANADOS MD December 11, 2024 13:33
[2024-12-12] VITALS (9 sets, daily range): BP systolic 0–118; BP diastolic 49–81; PULSE 50–101; RESP 16–18; TEMP 98–98.3; O2SAT 90–94
[2024-12-12 07:11] LABS: Anion Gap 7 (5-15); Carbon Dioxide 31 mmol/L (20-31); Potassium 3.9 mmol/L (3.5-5.1)
[2024-12-12 07:12] LABS: Calcium 10.1 mg/dL (8.7-10.4)
[2024-12-12 07:15] LABS: Basophils # (auto) 0.1 10 ^3/uL (0-0.2); Eosinophils # (auto) 0.2 10 ^3/uL (0-0.8); Eosinophils % (auto) 2.2 % (0.0-7.0); Hematocrit 46.8 % (36.0-46.0); Lymphocytes # (auto) 3.3 10 ^3/uL (0.4-5.4); Lymphocytes % (auto) 45.5 % (10.0-50.0); Mean Corpuscular Hemoglobin 31.4 pg (28.0-32.0); Mean Corpuscular Hgb Conc. 34.3 g/dL (32.0-36.0); Mean Corpuscular Volume 91.6 fL (80.0-100.0); Monocytes # (auto) 0.7 10 ^3/uL (0-1.3); Monocytes % (auto) 10.2 % (0.0-12.0); Neutrophils % (auto) 41.1 % (37.0-80.0); Nucleated Red Blood Cells % 0.1 %; Platelet Count (auto) 265 10^3/uL (140-450); Red Blood Cells 5.11 10^6/uL (4.0-5.20); Red Cell Distribution Width 13.4 % (11.8-14.3); White Blood Cell 7.3 10^3/uL (4.4-10.8)
[2024-12-12 07:17] LABS: BUN/Creatinine Ratio 23.4 (10.0-20.0); Glucose 98 mg/dL (74-106)
[2024-12-12 07:26] LABS: Blood Urea Nitrogen 29 mg/dL (9-23); Chloride 97 mmol/L (98-107); Sodium 135 mmol/L (136-145)
--- NOTE | 2024-12-12 16:01 | DVHPNRES ---
Progress Note Date Seen: December 12, 2024 Resident Creating Document: ALEJANDRO MADERA RESIDENT Has the PT tested + for MRSA If YES, has PT been informed?: No Medical Necessity Reason Pt with a Central, PICC or Fol: No Subjective Review of Systems Patient seen and examined at the bedside. Patient reported no active complaints today. pending pacemaker interrogation. Patient is likely going to DC tomorrow. Patient reports: No new complaints, Feels better Objective vital signs Vital Sign Date Time Temp Pulse Resp B/P (MAP) Pulse Ox O2 Delivery O2 Flow Rate FiO2 12/12/24 13:00 98.3 83 18 118/81 (93) 93 98.3 12/12/24 08:00 Room Air* 0 21 Total Intake and Output 12/11/24 12/11/24 12/12/24 15:00 23:00 07:00 Intake Total 50 ml 1620 ml 240 ml Output Total 1020 ml 500 ml Balance 50 ml 600 ml -260 ml medications Current Medications Medications Dose Ordered Sig/Umer Route Start Time Stop Time Status Last Admin Dose Admin Acetaminophen 325 mg Q4HP PRN PO 12/08/24 22:30 Ondansetron HCl 4 mg Q4HP PRN IV 12/08/24 22:30 Docusate Sodium 100 mg BIDPRN PRN PO 12/08/24 22:30 Enoxaparin Sodium 90 mg Q12HR SC 12/09/24 10:00 12/12/24 09:10 90 MG Metoprolol Tartrate 50 mg BID PO 12/09/24 10:00 12/12/24 09:09 50 MG Sacubitril/ Valsartan 1 tab BID PO 12/09/24 10:00 12/12/24 09:09 1 TAB Pantoprazole Sodium 40 mg DAILY@0600 PO 12/10/24 06:00 12/12/24 05:42 40 MG Furosemide 40 mg BIDD PO 12/12/24 18:00 Examination Pt is lying on bed General Appearance: Alert, Oriented X3, Cooperative, Not in acute distress HEENT: Atraumatic, Mucous membranes moist/pink Respiratory: Clear to auscultation, Normal air movement, No added sounds Cardiovascular: Regular rate, Normal S1, Normal S2, No murmurs Abdominal: Active bowel sounds, Soft, no distention, no tenderness Extremities: No edema, Normal pulses, No tenderness/swelling Skin: No Significant rash, except past surgical scars Neuro: Normal speech, sensorimotor deficits none Psych/Mental Status: Mental status NL, Mood NL Nurse was there as billne during examination laboratory and microbiology Laboratory Tests 12/12/24 05:53 Test 12/12/24 05:53 Range/Units Serum Glucose 98 74-106 mg/dL Labs and/or images reviewed: Labs reviewed by me, Image(s) reviewed by me Problem List/Assessment/Plan Problem List/Assessment/Plan # Acute exacerbation of heart failure with reduced ejection fraction, EF 20% on echocardiogram in 2022 # 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 # Hypertension # Dyslipidemia # KUMAR likely vasomotor - CXR: Cardiomegaly. No acute cardiopulmonary disease. -BNP 345 -pending repeat echo 2D report - echocardiogram from 2022 shows markedly diminished systolic function with EF 25% and severe global hypokinesis. Awil-ir-sedwvajp aortic insufficiency and mild tricuspid regurgitation. RVSP 43. - ordered repeat echocardiogram - PO furosemide 40 mg b.i.d. - therapeutic Lovenox - resumed home medication metoprolol - resumed home medication Entresto - consulted cardiology - pending pacemaker interrogation # Acute complicated UTI - Dc IV ceftriaxone - Pending NC # History of asthma, currently stable - monitor # Type 2 diabetes - BG 178 - ordered A1c - monitor # Obesity - counseled PUD prophylaxis: Pantoprazole DVT prophylaxis: Lovenox Goals of care discussed with the patient for more than 27 minutes: Full code status Case discussed with Dr. Valle, patient and nurse. likely DC tomorrow. Plan discussed with: Patient My Orders My Orders Orders - ALEJANDRO MADERA RESIDENT Procedure Category Date Status Time Furosemide Tablet PHA 12/12/24 In Process (Lasix Tablet) 18:00 Dietary Evaluation Review Comments: 1. Continue Cardiac diet as tolerated 2. Encourage continued good oral intakes >75% of meals 3. Monitor wt trends, +diuretics Expected Outcomes/Goals: Maintain adequate nutrition. ALEJANDRO MADERA RESIDENT December 12, 2024 16:00
[2024-12-12] MEDS: FUROSEMIDE 40 MG TAB PO SCH (18:00)
--- NOTE | 2024-12-12 22:20 | DVHPN2 ---
Progress Note - Dictate Date Seen: December 12, 2024 Has the PT tested + for MRSA If YES, has PT been informed?: No Medical Necessity Reason Pt with a Central, PICC or Fol: No Subjective Patient was seen and evaluated in follow up. No overnight events. Pending pacemaker interrogation. BUN 29, Director Sales Training 1.24. Telemetry reviewed. vital signs Vital Sign Date Time Temp Pulse Resp B/P (MAP) Pulse Ox O2 Delivery O2 Flow Rate FiO2 12/12/24 21:08 77 12/12/24 21:00 98.3 17 112/59 (76) 93 98.3 12/12/24 20:00 Room Air* 0 21 Total Intake and Output 12/11/24 12/11/24 12/12/24 15:00 23:00 07:00 Intake Total 50 ml 1620 ml 240 ml Output Total 1020 ml 500 ml Balance 50 ml 600 ml -260 ml medications Current Medications Medications Dose Ordered Sig/Umer Route Start Time Stop Time Status Last Admin Dose Admin Acetaminophen 325 mg Q4HP PRN PO 12/08/24 22:30 Ondansetron HCl 4 mg Q4HP PRN IV 12/08/24 22:30 Docusate Sodium 100 mg BIDPRN PRN PO 12/08/24 22:30 Enoxaparin Sodium 90 mg Q12HR SC 12/09/24 10:00 12/12/24 09:10 90 MG Metoprolol Tartrate 50 mg BID PO 12/09/24 10:00 12/12/24 21:08 50 MG Sacubitril/ Valsartan 1 tab BID PO 12/09/24 10:00 12/12/24 21:08 1 TAB Pantoprazole Sodium 40 mg DAILY@0600 PO 12/10/24 06:00 12/12/24 05:42 40 MG Furosemide 40 mg BIDD PO 12/12/24 18:00 objective GENERAL: Alert and oriented x 3. No acute distress. EYES: PERRL, EOMI. Anicteric. HENT: Moist mucous membranes. LUNGS: Clear to auscultation bilaterally. CARDIOVASCULAR: Regular rate and rhythm. ABDOMEN: Soft, nontender and nondistended. EXTREMITIES: BLE edema. NEUROLOGIC: No focal neurological deficits. SKIN: Warm, dry. laboratory and microbiology Laboratory Tests 12/12/24 05:53 Test 5/5/25 05:53 Range/Units Serum Glucose 98 74-106 mg/dL Problem List Acute exacerbation of heart failure with reduced ejection fraction, EF 20% on echocardiogram in 2022. 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 History of atrial fibrillation. S/p AICD. Hypertension. Acute complicated UTI. History of asthma. Type 2 diabetes. Obesity. Assessment/Plan Continued all current supportive medical care. IV antibiotics as ordered. DVT and GI prophylactics. Diuretics with Lasix. Metoprolol. Entresto. Additional plan as per the hospital course. Dietary Evaluation Review Comments: 1. Continue Cardiac diet as tolerated 2. Encourage continued good oral intakes >75% of meals 3. Monitor wt trends, +diuretics Expected Outcomes/Goals: Maintain adequate nutrition. Plan discussed with: Patient MIKE GRANADOS MD December 12, 2024 22:20
[2024-12-13 01:00] VITALS: BP 125/80; PULSE 72; RESP 17; TEMP 97.6; O2SAT 97
[2024-12-13 05:00] VITALS: BP 122/50; PULSE 80; RESP 17; TEMP 98.1; O2SAT 93
[2024-12-13 08:00] VITALS: PULSE 88
[2024-12-13 08:50] VITALS: BP 111/51; PULSE 47; RESP 16; TEMP 97.8; O2SAT 91
[2024-12-13 09:34] LABS: Potassium 3.7 mmol/L (3.5-5.1)
[2024-12-13 09:35] LABS: Anion Gap 8 (5-15); Carbon Dioxide 31 mmol/L (20-31)
[2024-12-13 09:40] LABS: BUN/Creatinine Ratio 25.6 (10.0-20.0)
[2024-12-13 09:43] LABS: Blood Urea Nitrogen 33 mg/dL (9-23); Chloride 95 mmol/L (98-107); Glucose 138 mg/dL (74-106); Sodium 134 mmol/L (136-145)
[2024-12-13 10:02] LABS: Calcium 10.1 mg/dL (8.7-10.4)
--- NOTE | 2024-12-13 10:12 | CONS ---
Pharmacy Clinical Information: CQM HF (missing ,LIPID LOWERING DRUGS, ANTI-HYPERGLYCEMIC DRUGS). Patient's current hemoglobin A1c is 6% (previous A1c: 7%) is considered within goal for patients with diabetes per ADA 5 guidelines. Adding an antihyperglycemic medication should be done at the discretion of the patient primary physician. Patient's last Lipid panel was done in 2022, a more recent lipid panel might be considered to make a more appropriate guidelines based recommendation. WANDY MENDIOLA PHARMACIST December 13, 2024 10:12
[2024-12-13 13:00] VITALS: BP 118/69; PULSE 51; RESP 17; TEMP 98; O2SAT 98
[2024-12-13] MEDS ORDERED: FURO20TA3 PO (15:04)
--- NOTE | 2024-12-13 15:05 | DVHDSRES ---
Discharge Summary Date of Admission Resident Creating Document: ALEJANDRO MADERA RESIDENT December 08, 2024 at 22:23 Date of Discharge: December 13, 2024 Admitting Diagnosis CHF exacerbation Labs/Diagnostic Data: Laboratory Results Test 12/13/24 09:04 12/12/24 05:53 12/09/24 08:15 12/09/24 03:39 Sodium Level 134 mmol/L (136-145) Potassium Level 3.7 mmol/L (3.5-5.1) Chloride Level 95 mmol/L (98-107) Carbon Dioxide Level 31 mmol/L (20-31) Anion Gap 8 (5-15) Blood Urea Nitrogen 33 mg/dL (9-23) Creatinine 1.29 mg/dL (0.550-1.02) Glomerular Filtration Rate Calc 45 mL/min (>90) BUN/Creatinine Ratio 25.6 (10.0-20.0) Serum Glucose 138 mg/dL (74-106) Calcium Level 10.1 mg/dL (8.7-10.4) White Blood Count 7.3 10^3/uL (4.4-10.8) Red Blood Count 5.11 10^6/uL (4.0-5.20) Hemoglobin 16.0 g/dL (12.2-16.2) Hematocrit 46.8 % (36.0-46.0) Mean Corpuscular Volume 91.6 fL (80.0-100.0) Mean Corpuscular Hemoglobin 31.4 pg (28.0-32.0) Mean Corpuscular Hemoglobin Concent 34.3 g/dL (32.0-36.0) Red Cell Distribution Width 13.4 % (11.8-14.3) Platelet Count 265 10^3/uL (140-450) Mean Platelet Volume 9.1 fL (6.9-10.8) Neutrophils (%) (Auto) 41.1 % (37.0-80.0) Lymphocytes (%) (Auto) 45.5 % (10.0-50.0) Monocytes (%) (Auto) 10.2 % (0.0-12.0) Eosinophils (%) (Auto) 2.2 % (0.0-7.0) Basophils (%) (Auto) 1.0 % (0.0-2.0) Neutrophils # (Auto) 3.0 10 ^3/uL (1.6-8.6) Lymphocytes # (Auto) 3.3 10 ^3/uL (0.4-5.4) Monocytes # (Auto) 0.7 10 ^3/uL (0-1.3) Eosinophils # (Auto) 0.2 10 ^3/uL (0-0.8) Basophils # (Auto) 0.1 10 ^3/uL (0-0.2) Nucleated Red Blood Cells 0.1 % Urine Color Colorless (Yellow) Urine Clarity Clear (Clear) Urine pH 6.5 (5.0-9.0) Urine Specific [place] 1.006 (1.001-1.035) Urine Protein Negative (Negative) Urine Ketones Negative (Negative) Urine Blood Negative /uL (Negative) Urine Nitrite Negative (Negative) Urine Bilirubin Negative (Negative) Urine Urobilinogen Normal mg/dL (Negative) Urine Leukocyte Esterase Negative /uL (Negative) Urine RBC 1 /hpf (0 - 4) Urine Microscopic WBC < 1 /HPF (0-5) Urine Squamous Epithelial Cells Few /hpf (<5) Urine Bacteria None seen /hpf (None Seen) Urine Glucose Normal mg/dL (Normal) Urine Opiates Screen Neg (NEGATIVE) Urine Fentanyl Screen Neg (NEGATIVE) Urine Barbiturates Screen Neg (NEGATIVE) Urine Phencyclidine Screen Neg (NEGATIVE) Urine Amphetamines Screen Neg (NEGATIVE) Urine Benzodiazepines Screen Neg (NEGATIVE) Urine Cocaine Screen Neg (NEGATIVE) Urine Cannabinoids Screen Neg (NEGATIVE) Total Bilirubin 0.5 mg/dL (0.2-1.0) Aspartate Amino Transferase (AST) 18 U/L (13-40) Alanine Aminotransferase (ALT) 22 U/L (7-40) Alkaline Phosphatase 70 U/L (46-116) Total Protein 6.9 g/dL (5.7-8.2) Albumin 4.1 g/dL (3.2-4.8) Test 12/08/24 23:59 12/08/24 23:50 12/08/24 14:36 12/08/24 14:33 Hemoglobin A1c 6.0 % A1C (<5.7) Vitamin B12 Level 910 pg/mL (211-911) Vitamin D 25-Hydroxy 27.5 ng/mL (30.0-100) Folic Acid 16.55 ng/mL (>5.38) Influenza Type A Antigen Negative (Negative) Influenza Type B Antigen Negative (Negative) SARS-CoV-2 Antigen (Rapid) Negative (NEGATIVE) Magnesium Level 1.7 mg/dL (1.6-2.6) Direct Bilirubin 0.2 mg/dL (<0.3) Troponin I High Sensitivity 23 ng/L (</=34) Thyroid Stimulating Hormone (TSH) 0.93 uIU/mL (0.55-4.78) Blood Gas Specimen Type Arterial Blood Gas Sample Site Right radial Blood Gas Patient Temperature 37.0 Arterial Blood Date Drawn [id number] Arterial Blood pH 7.430 (7.350-7.450) Arterial Blood Partial Pressure CO2 36.3 mmHg (32.0-45.0) Arterial Blood Partial Pressure O2 70.4 mmHg (83.0-108.0) Arterial Blood HCO3 23.6 mmol/L (21.0-28.0) Arterial Blood Oxygen Saturation 94.0 % (94.0-98.0) Arterial Blood Base Excess -0.3 mmol/L (-2.0-3.0) Arterial Blood Oxyhemoglobin 93.2 % (94.0-98.0) Arterial Blood Carboxyhemoglobin 0.4 % (0.5-1.5) Arterial Blood Methemoglobin 0.4 % (0.0-1.5) Ritesh Test Yes Blood Gas Total Hemoglobin 14.20 g/dL (12.0-16.0) Blood Gas Modality Room air FiO2 % 21.0 Test 12/08/24 11:40 B-Type Natriuretic Peptide 345.58 pg/mL (0-100) Other Laboratory Tests 12/13/24 09:04 12/12/24 05:53 Brief Hx & Hospital Course: Patient is a 61-year-old female with past medical history of Chagas cardiomyopathy, heart failure with reduced ejection fraction 20%, atrial fibrillation on Eliquis, hypertension, hyperlipidemia, s/p AICD placement in 2022, asthma, who comes in after feeling her AICD vibrating/ramping. According to the patient, yesterday she felt a vibration from her AICD around 7:00 a.m. shortly after taking her morning antihypertensive medications. Denies ever having similar symptoms in the past. Per patient, she received AICD placement in 2022 and she very well knows how to differentiate between AICD firing versus ramping up before firing. 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 On review of systems patient is complaining of dyspnea class 3 which has been stable over the last 1 year, fatigue, cough, severe generalized weakness. On physical exam patient is noted to have crackles throughout and 2+ lower extremity edema, serum BNP was 345 and serial troponins were 25, 24, 23. Chest x-ray showed cardiomegaly. According to the patient, sometimes she is nonadherent to medication and she also gave her metoprolol and verquvo to her sister when she was visiting [place] so she has been out of medications. Patient was admitted to the hospital and started on IV furosemide b.i.d., Cardiology was consulted and a repeat echocardiogram was ordered.Patient condition was continuously monitored and initiated GDM T as tolerated. Patient due to AFib continuously monitored on telemetry. Pacemaker interrogation showed no acute abnormalities. Patient developed a KUMAR which was continuously monitored and resolved. Patient condition was improved, hemodynamically stable and in condition to be discharged home with optimal medical treatment and advised to follow up with Cardiology in outpatient for further management. Pt is lying on bed General Appearance: Alert, Oriented X3, Cooperative, Not in acute distress HEENT: Atraumatic, Mucous membranes moist/pink Respiratory: Clear to auscultation, Normal air movement, No added sounds Cardiovascular: Regular rate, Normal S1, Normal S2, No murmurs Abdominal: Active bowel sounds, Soft, no distention, no tenderness Extremities: No edema, Normal pulses, No tenderness/swelling Skin: No Significant rash, except past surgical scars Neuro: Normal speech, sensorimotor deficits none Psych/Mental Status: Mental status NL, Mood NL Nurse was there as jefry during examination Condition at Discharge: Stable Final Diagnosis/Problems List # Acute exacerbation of heart failure with reduced ejection fraction, EF 20% on echocardiogram in 2022 # 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 # Hypertension # Dyslipidemia # KUMAR likely vasomotor # Acute complicated UTI # History of asthma, currently stable # Type 2 diabetes # Morbid Obesity Discharge Disposition: Home Discharge Instruct/Medications Diet: Consistent carbohydrate, Cardiac 2g Na,low cholest Activity: No Restrictions, As Tolerated Follow Up/Referral: Cardiology for further management PCP Medications: As per EMR Discharge Statement: "Patient was advised to return to the ER or call 911 if any headaches, dizziness, shortness of breath, chest pain, abdominal pain, bleeding, fevers, or worsening of medical condition. Patient was counseled about treatment plan, medications, possible side effects, patientverbalized understanding. All questions were answered to the best of my ability. This discharge took greater then 30 minutes in planning, reviewing documentation, counseling the patient, and discussing with other team members." ASSESSMENT ASSESSMENT Assessment Heart failure exacerbation ALEJANDRO MADERA RESIDENT December 13, 2024 15:05
[2024-12-13 15:27] VITALS: BP 118/69; PULSE 85; TEMP 36.7
--- NOTE | 2024-12-13 23:39 | DVHPN2 ---
Progress Note - Dictate Date Seen: December 13, 2024 Has the PT tested + for MRSA If YES, has PT been informed?: No Medical Necessity Reason Pt with a Central, PICC or Fol: No Subjective Patient was seen and evaluated in follow up. Patient has no new complaints at this time. Patient denies any cardiac symptoms. Patient is cardiac stable for discharge. Telemetry reviewed. vital signs Vital Sign Date Time Temp Pulse Resp B/P (MAP) Pulse Ox O2 Delivery O2 Flow Rate FiO2 12/13/24 15:27 36.7 85 12/13/24 13:00 17 118/69 (85) 98 12/13/24 08:05 Room Air* 0 21 Total Intake and Output 12/12/24 12/12/24 12/13/24 15:00 23:00 07:00 Intake Total 50 ml 1200 ml 836 ml Output Total 800 ml Balance 50 ml 400 ml 836 ml objective GENERAL: Alert and oriented x 3. No acute distress. EYES: PERRL, EOMI. Anicteric. HENT: Moist mucous membranes. LUNGS: Clear to auscultation bilaterally. CARDIOVASCULAR: Regular rate and rhythm. ABDOMEN: Soft, nontender and nondistended. EXTREMITIES: BLE edema. NEUROLOGIC: No focal neurological deficits. SKIN: Warm, dry. laboratory and microbiology Laboratory Tests 12/13/24 09:04 12/12/24 05:53 Test 12/13/24 09:04 Range/Units Serum Glucose 138 H 74-106 mg/dL Problem List Acute exacerbation of heart failure with reduced ejection fraction, EF 20% on echocardiogram in 2022. 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 History of atrial fibrillation. S/p AICD. Hypertension. Acute complicated UTI. History of asthma. Type 2 diabetes. Obesity. Assessment/Plan Continued all current supportive medical care. IV antibiotics as ordered. DVT and GI prophylactics. Diuretics with Lasix. Metoprolol. Entresto. Additional plan as per the hospital course. Dietary Evaluation Review Comments: 1. Continue Cardiac diet as tolerated 2. Encourage continued good oral intakes >75% of meals 3. Monitor wt trends, +diuretics Expected Outcomes/Goals: Maintain adequate nutrition. Plan discussed with: Patient MIKE GRANADOS MD December 13, 2024 23:39
== END 2024-12-13 17:35 | disposition home or self-care (01) | DRG 291 ==
LOC: ER 11:20 → OVERFLOW 22:23 → TELE-EAST 12-09 14:53
PROVIDERS: ADMIT Student in an Organized Health Care Education/Training Program; ATTEND Emergency Medicine
PROC: 4B02XSZ Measurement of Cardiac Pacemaker, External Approach (ICD-10-PCS; principal; 2024-12-13)
DX: I11.0 Hypertensive heart disease with heart failure (principal); I50.23 Acute on chronic systolic (congestive) heart failure; B57.2 Chagas' disease (chronic) with heart involvement; N39.0 Urinary tract infection, site not specified; N17.9 Acute kidney failure, unspecified; I42.0 Dilated cardiomyopathy; I48.91 Unspecified atrial fibrillation; J45.909 Unspecified asthma, uncomplicated; R09.02 Hypoxemia; Z20.822 Contact with and (suspected) exposure to COVID-19; E78.5 Hyperlipidemia, unspecified; E11.9 Type 2 diabetes mellitus without complications; I08.2 Rheumatic disorders of both aortic and tricuspid valves; E66.01 Morbid (severe) obesity due to excess calories; Z68.38 Body mass index [BMI] 38.0-38.9, adult; Z91.148 Patient's other noncompliance with medication regimen for other reason; Z80.1 Family history of malignant neoplasm of trachea, bronchus and lung; Z79.1 Long term (current) use of non-steroidal anti-inflammatories (NSAID); Z79.899 Other long term (current) drug therapy; Z95.0 Presence of cardiac pacemaker
CPT/HCPCS: 36415; 36600; 71045; 80048; 80053; 80076; 80307; 81001; 82306; 82607; 82746; 82805; 83036; 83735; 83880; 84443; 84484; 85025; 87426; 87804; 93005; 93306; 96365; 96375; 97110; 97116; 97163; 97530; 99291; G0378

== ENCOUNTER 2025-01-30 14:09 | Inpatient (IN) | payer OTHER, MEDICAID ==
[~2025-01-30] VITALS: Ht 154.9 cm; Wt 100.8 kg
[~2025-01-30 14:09] MED LIST changes: +ALBU108A5 PO; -AUG875T PO; -AZIT-185 PO; +DABI75CA PO; +FURO20TA3 PO; -PRED20TA2 PO
--- NOTE | 2025-01-30 14:24 | ED.PDOC ---
History of Present Illness HPI Comments 69 year old female with a History of Asthma, HTN, Pneumonia, and a Pacemaker presents to the ED for the c/c of SOB and associated Cough. Pt states that her SOB has been going on for the past 2x days with no alleviating factors at this time. Pt denies any N/V/D, JIANG, or any other symptoms or modifying factors reported at this time. Time Seen by MD: 14:20 Primary Care Provider: DARWIN Reviewed Notes: Nurses Notes, Medications, Allergies Allergies: Coded Allergies: NO KNOWN ALLERGIES (Unverified , 04/21/14) Home Meds Active Scripts Furosemide (Furosemide) 20 Mg Tab, 1 TAB PO DAILY for 60 Days, #60 TAB 1 Refill Prov:ALEJANDRO MADERA RESIDENT 12/13/24 Albuterol Sulfate (Albuterol Sulfate) 0.083 % Neb, 1 VIAL NEB Q4HPRN PRN for 7 Days, #50 VIAL Prov:JIA MINAYA PROGRAM ANALYST 09/04/24 Beclomethasone Dipropionate (Qvar Redihaler) 40 Mcg/Act Aer, 40 MCG IN Q12HR for 30 Days, #1 KIT 0 Refills Prov:DELMIS HOGUE GLUING MACHINE OPERATOR 05/04/23 Reported Medications Ibuprofen Micronized (Ibuprofen) 400 Mg Tab, 1 TAB PO TID 07/11/23 Metoprolol Tartrate (LOPRESSOR TABLET) 50 Mg Tb, 1 TAB PO BID 07/11/23 Valsartan (Valsartan) 160 Mg Tab, 1 TAB PO DAILY 07/11/23 Information Source: Patient, Spouse Mode of Arrival: Wheelchair Severity: Moderate Timing: Days Duration: Since onset, Days Prehospital treatment: None Past Medical History PAST MEDICAL HISTORY: Asthma, HTN Surgical History: Hernia Repair, Pacemaker PROCUREMENT DIRECTOR History: No Pertinent PROCUREMENT DIRECTOR History Family History Family History: Unobtainable Social History Smoker: Non-Smoker Alcohol: Denies ETOH Use Drugs: Denies Drug Use Lives In: Home Constitutional: denies: chills, diaphoresis, fatigue, fever, malaise, sweats, w eakness, others EENTM: denies: blurred vision, double vision, ear bleeding, ear discharge, ear drainage, ear pain, ear ringing, eye pain, eye redness, hearing loss, mouth pain, mouth swelling, nasal discharge, nose bleeding, nose congestion, nose pain, photophobia, tearing, throat pain, throat swelling, voice changes, others Respiratory: reports: cough, SOB at rest, shortness of breath; denies: hemopty sis, orthopnea, SOB with excertion, stridor, wheezing, others Cardiovascular: denies: chest pain, dizzy spells, diaphoresis, Dyspnea on exertion, edema, irregular heart beat, left arm pain, lightheadedness, palpitations, PND, syncope, others Gastrointestinal: denies: abdomen distended, abdominal pain, blood streaked bowels, constipated, diarrhea, dysphagia, difficulty swallowing, hematemesis, melena, nausea, poor appetite, poor fluid intake, rectal bleeding, rectal pain, vomiting, others Genitourinary: denies: abnormal vagina bleeding, burning, dyspareunia, dysuria, flank pain, frequency, hematuria, incontinence, pain, , vagina discharge, urgency, others Neurological: denies: dizziness, fainting, headache, left sided numbness, left sided weakness, numbness, paresthesia, pre-existing deficit, right sided numbness, right sided weakness, seizure, speech problems, tingling, tremors, weakness, others Musculoskeletal: denies: back pain, gout, joint pain, joint swelling, muscle pain, muscle stiffness, neck pain, others Integumetry: denies: bruises, change in color, change in hair/nails, dryness, laceration, lesions, lumps, rash, wounds, others Allergic/Immunocompromised: denies: Difficulty Healing, Frequent Infections, Hives, Itching, others Hematologic/Lymphatic: denies: anemia, blood clots, easy bleeding, easy bruising, swollen glands, others Endocrine: denies: excessive hunger, excessive sweating, excessive thirst, excessive urination, flushing, intolerance to cold, intolerance to heat, unexplained weight gain, unexplained weight loss, others Psychiatric: denies: anxiety, bipolar disorder, depression, hopeless, panic disorder, schizophrenia, sleepless, suicidal, others All Other Systems: Reviewed and Negative Physical Exam General Appearance: Moderate Distress HEENT: Normal ENT Inspection, Pharynx Normal, TMs Normal Neck: Full Range of Motion, Non-Tender, Normal, Normal Inspection Respiratory: Chest Non-Tender, Decreased Breath Sounds, No Accessory Muscle Use, Respiratory Distress Cardiovascular: No Edema, No JVD, No Murmur, No Gallop, Normal Peripheral Pulses, Regular Rate/Rhythm Breast Exam: Deferred Gastrointestinal: No Organomegaly, Non Tender, No Pulsatile Mass, Normal Bowel Sounds, Soft Genitalia: Deferred Pelvic: Deferred Rectal: Deferred Extremities: No calf tenderness, Normal capillary refill, Normal inspection, Normal range of motion, Non-tender, No pedal edema Musculoskeletal : Apperance: Normal Neurologic: Alert, radio commentator II-XII nml as Tested, No Motor Deficits, Normal Affect, Normal Mood, No Sensory Deficits Cerebellar Function: Normal Reflexes: Normal Skin: Dry, Normal Color, Warm Lymphatic: No Adenopathy Was a procedure done? Was a procedure done?: No Differential Dx Considerations may include: Status asthmaticus, PE, generalized weakness X-Ray, Labs, Meds, VS Vital Signs Date Time Temp Pulse Resp B/P (MAP) Pulse Ox O2 Delivery O2 Flow Rate FiO2 01/30/25 14:55 97.6 97 18 131/67 (88) 95 97.6 Lab Test 01/30/25 14:31 Range/Units White Blood Count 9.8 4.4-10.8 10^3/uL Red Blood Count 4.13 4.0-5.20 10^6/uL Hemoglobin 13.0 12.2-16.2 g/dL Hematocrit 38.2 36.0-46.0 % Mean Corpuscular Volume 92.4 80.0-100.0 fL Mean Corpuscular Hemoglobin 31.5 28.0-32.0 pg Mean Corpuscular Hemoglobin Concent 34.1 32.0-36.0 g/dL Red Cell Distribution Width 13.8 11.8-14.3 % Platelet Count 184 140-450 10^3/uL Mean Platelet Volume 9.3 6.9-10.8 fL Neutrophils (%) (Auto) 76.7 37.0-80.0 % Lymphocytes (%) (Auto) 16.5 10.0-50.0 % Monocytes (%) (Auto) 6.1 0.0-12.0 % Eosinophils (%) (Auto) 0.2 0.0-7.0 % Basophils (%) (Auto) 0.5 0.0-2.0 % Neutrophils # (Auto) 7.5 1.6-8.6 10 ^3/uL Lymphocytes # (Auto) 1.6 0.4-5.4 10 ^3/uL Monocytes # (Auto) 0.6 0-1.3 10 ^3/uL Eosinophils # (Auto) 0 0-0.8 10 ^3/uL Basophils # (Auto) 0.1 0-0.2 10 ^3/uL Nucleated Red Blood Cells 0.1 % Sodium Level 135 L 136-145 mmol/L Potassium Level 4.3 3.5-5.1 mmol/L Chloride Level 101 98-107 mmol/L Carbon Dioxide Level 26 20-31 mmol/L Anion Gap 8 5-15 Blood Urea Nitrogen 21 9-23 mg/dL Creatinine 1.13 H 0.550-1.02 mg/dL Glomerular Filtration Rate Calc 53 >90 mL/min BUN/Creatinine Ratio 18.6 10.0-20.0 Serum Glucose 167 H 74-106 mg/dL Calcium Level 9.2 8.7-10.4 mg/dL Troponin I High Sensitivity 73 *H </=34 ng/L Current Medications Medications (Trade) Dose Ordered Sig/Umer Route Start Time Stop Time Status Last Admin Ipratropium [place] (Atrovent Medneb) 1 mg ONCE ONCE [facility] 01/30/25 14:30 01/30/25 14:31 DC 01/30/25 14:35 Albuterol (Ventolin Medneb) 10 mg ONCE ONCE N 01/30/25 14:30 01/30/25 14:31 DC 01/30/25 14:35 IV Hep-Lock was established The patient was given a continuous breathing treatment of albuterol and Atrovent The patient's 1st troponin level came back at elevated at 73 We are repeating the troponin level The CBC and chemistry panel are within normal limits At D-dimer is also pending The patient is being admitted at this time At this time there is a concern that the patient may have a PE so we are doing a CAT scan of the chest to rule out PE. The patient's oxygen saturations 95% The patient is being admitted at this time. The patient was also given Solu-Medrol 125 mg IV push Images Reviewed?: Images reviewed and evaluated by me Time of 1ST Reevaluation: 14:51 Reevaluation 1ST: Unchanged Patient Education/Counseling: Diagnosis, Treatment, Prognosis Family Education/Counseling: Diagnosis, Treatment, Prognosis SEPSIS Sepsis Screen Physician Orders Med Neb Initial Treatment (01/30/25 14:21) Heplock Iv (01/30/25 14:21) Pulse Oximetry (01/30/25 14:21) Electronic Equipment Installer (01/30/25 14:21) Blood Pressure (01/30/25 14:21) Chest Two Views Routine (01/30/25 14:21) Electrocardigram (01/30/25 14:21) Covid19 Antigen Mckenna (01/30/25 ) Rapid Influenza A&B (01/30/25 14:21) Vital Signs Date Time Temp Pulse Resp B/P (MAP) Pulse Ox O2 Delivery O2 Flow Rate FiO2 01/30/25 14:55 97.6 97 18 131/67 (88) 95 97.6 Laboratory Tests Test 01/30/25 14:31 White Blood Count 9.8 10^3/uL (4.4-10.8) Medications Medications Dose Ordered Sig/Umer Route Start Time Stop Time Status Last Admin Dose Admin Albuterol 10 mg ONCE ONCE [facility] 01/30/25 14:30 01/30/25 14:31 DC 01/30/25 14:35 Ipratropium [place] 1 mg ONCE ONCE [facility] 01/30/25 14:30 01/30/25 14:31 DC 01/30/25 14:35 Departure 1 Departure Time of Disposition: 15:47 Impression: Primary Impression: Asthma with status asthmaticus Qualified Codes: J45.42 - Moderate persistent asthma with status asthmaticus Disposition: ADMITTED INPATIENT Admit to: Tele Condition: Fair Critical Care Note Critical Care Time?: Yes (45 min-critical care time only) Stability Stability form required: Yes Unstable for transfer: Telemetry monitoring (Telemetry monitoring required), ED Physician Assesment (Clinical assesment) Heart Score Heart Score: Heart Score Response (Comments) Value History N/A 0 EKG N/A 0 Age N/A 0 Risk Factors N/A 0 Troponin N/A 0 Total 0 I personally scribed for ATA LIGHT MD ([email or web address]) on 01/30/25 at 14:24. Electronically submitted by Tee Benz ([email or web address]). ATA LIGHT MD Jan 30, 2025 14:24
[2025-01-30] MEDS: IPRATROPIUM BROM 0.5 MG/2.5ML INH SOL HHN ONE (14:35)
[2025-01-30] MEDS: ALBUTEROL SULF 2.5 MG/0.5ML(0.5%) NEB SOLN HHN ONE (14:35)
[2025-01-30 14:40] LABS: Basophils # (auto) 0.1 10 ^3/uL (0-0.2); Basophils % (auto) 0.5 % (0.0-2.0); Eosinophils # (auto) 0 10 ^3/uL (0-0.8); Eosinophils % (auto) 0.2 % (0.0-7.0); Hematocrit 38.2 % (36.0-46.0); Lymphocytes # (auto) 1.6 10 ^3/uL (0.4-5.4); Lymphocytes % (auto) 16.5 % (10.0-50.0); Mean Corpuscular Hemoglobin 31.5 pg (28.0-32.0); Mean Corpuscular Hgb Conc. 34.1 g/dL (32.0-36.0); Mean Corpuscular Volume 92.4 fL (80.0-100.0); Monocytes # (auto) 0.6 10 ^3/uL (0-1.3); Monocytes % (auto) 6.1 % (0.0-12.0); Neutrophils # (auto) 7.5 10 ^3/uL (1.6-8.6); Neutrophils % (auto) 76.7 % (37.0-80.0); Nucleated Red Blood Cells % 0.1 %; Platelet Count (auto) 184 10^3/uL (140-450); Red Blood Cells 4.13 10^6/uL (4.0-5.20); Red Cell Distribution Width 13.8 % (11.8-14.3); White Blood Cell 9.8 10^3/uL (4.4-10.8)
[2025-01-30 14:52] LABS: Chloride 101 mmol/L (98-107); Potassium 4.3 mmol/L (3.5-5.1)
[2025-01-30 14:53] LABS: Anion Gap 8 (5-15); Carbon Dioxide 26 mmol/L (20-31)
[2025-01-30 14:54] LABS: Calcium 9.2 mg/dL (8.7-10.4)
[2025-01-30 14:55] LABS: Sodium 135 mmol/L (136-145)
[2025-01-30 14:59] LABS: BUN/Creatinine Ratio 18.6 (10.0-20.0); Blood Urea Nitrogen 21 mg/dL (9-23)
[2025-01-30 15:00] LABS: Glucose 167 mg/dL (74-106)
--- NOTE | 2025-01-30 15:31 | DVH ---
CHEST RADIOGRAPH Indication: sob Technique: Single frontal view of the chest was obtained COMPARISON: 12/08/2024 FINDINGS: Left chest single lead cardiac pacer device. The cardiac silhouette is enlarged. The lungs demonstrate bilateral patchy airspace opacities. The pu lmonary vasculature is prominent. Small bilateral pleural effusions. There is no pneumothorax. Aortic atherosclerotic disease. Moderate thoracic degenerative disc disease. IMPRESSION: As above
[2025-01-30] MEDS: IOHEXOL 350 MG/ML 100ML IJ ONE (16:12)
--- NOTE | 2025-01-30 17:03 | DVH ---
EXAM: CT CT ANGIO CHEST CONTRAST HISTORY: sob COMPARISON: Chest x-ray from earlier same day. Radiation Dose: Chest: CTDI volume is 28.94 mGy. Dose-length product is 937.56 mGy*cm TECHNIQUE: Helical CT images of the chest were performed with IV contrast using pulmonary CTA protoc ol. Sagittal and coronal reformatted images and 3D MIP images were obtained. This CT exam was perform ed using 1 or more of the following dose reduction techniques: Automated exposure control, adjustment of the mA and/or kv according to patient size, or the use of iterative reconstruction techniques. FINDINGS: No pulmonary arterial filling defects are identified. There are small right and trace left pleural effusions. There is interlobular septal thickening. There are patchy and ground-glass opaciti es in both lungs. There is moderate peribronchial thickening. No pneumothorax. No suspicious mediast inal or axillary adenopathy. The heart is enlarged. There are extensive coronary artery calcificatio ns. The central pulmonary arteries are ectatic. There is ascending thoracic aortic ectasia measuring up to 4.3 cm diameter. The descending thoracic aorta is normal in caliber. The liver is likely diffu sely fatty density. There is mild fat stranding about the pancreatic head, not fully imaged here. The re is gallbladder wall thickening, although the gallbladder is not distended. There is a left chest A ICD. There is moderate to severe thoracic degenerative disc disease. There is mild lower thoracic le voscoliosis. IMPRESSION: 1. No evidence of pulmonary embolism. 2. Cardiomegaly, pleural effusions, interlobular septal thickening, peribronchial thickening suggesti ve of CHF. 3. Patchy and ground-glass opacities bilaterally which may be due to CHF and/or pneumonia. 4. Pulmonary arterial hypertension. 5. Extensive coronary artery disease and left chest AICD. 6. Probable hepatic steatosis. 7. Fat stranding about the pancreatic head may be due to acute pancreatitis. Correlate with pancreati c enzymes. The abdomen is not fully imaged here. 8. Gallbladder wall thickening may be due to acute cholecystitis or artifactual appearance due to lac k of luminal distention. Recommend follow-up right upper quadrant ultrasound for better characteriza tion, especially if the patient is tender to palpation in the right upper quadrant. Correlate with LF Ts.
[2025-01-30 17:05] VITALS: PULSE 69; RESP 18; O2SAT 95
[2025-01-30] MEDS: methylPREDNISolone SOD SUCC 125 MG/2 ML VL IV ONE (17:14)
[2025-01-30 18:20] LABS: COVID19 ANTIGEN SOFIA FIA NEGATIVE (NEGATIVE); Rapid Influenza A Negative (Negative); Rapid Influenza B Negative (Negative)
[2025-01-30] MEDS ORDERED: ALBUTEROL SULF 2.5 MG/0.5ML(0.5%) NEB SOLN NEB PRN (19:15)
[2025-01-30] MEDS ORDERED: ACETAMINOPHEN 325 MG TAB PO PRN (19:15)
[2025-01-30] MEDS ORDERED: IPRATROPIUM BROM 0.5 MG/2.5ML INH SOL NEB PRN (19:15)
[2025-01-30] MEDS ORDERED: MORPHINE SULFATE INJ 2 MG/ml SYRG IV PRN (19:15)
[2025-01-30] MEDS ORDERED: NITROGLYCERIN 0.4 MG SL TAB SL PRN (19:15)
[2025-01-30] MEDS ORDERED: ONDANSETRON HCL 4 MG/2 ML VIAL IV PRN (19:15)
[2025-01-30 19:27] VITALS: BP 112/79; PULSE 69; RESP 18; TEMP 97.8; O2SAT 95
--- NOTE | 2025-01-30 22:22 | DVHHP2 ---
History of Present Illness Reason for Visit: Shortness for breath History of Present Illness 61-year-old female with a history of congestive heart failure presents for evaluation of shortness for breath. Patient reports a two day history of worsening shortness for breath with associated nonproductive cough, chest pressure and bilateral lower extremity swelling. Patient reports not taking her Lasix today. Past Medical History Hypertension, asthma, congestive heart failure Past Surgical History Pacemaker, hernia repair Family History Noncontributory Smoke: No ALCOHOL: none Drugs: None Lives: with Family Review of Systems Review of Systems Review of systems are currently negative otherwise addressed in HPI. Allergies: Coded Allergies: NO KNOWN ALLERGIES (Unverified , 04/21/14) Medications Current Medications Medications Dose Ordered Sig/Umer Route Start Time Stop Time Status Last Admin Dose Admin Furosemide 20 mg BIDD IV 01/31/25 06:00 Azithromycin 250 ml @ 125 mls/hr DAILY@2000 IV 01/31/25 20:00 Sacubitril/ Valsartan 1 tab BID PO 01/30/25 22:00 Dabigatran 75 mg BID PO 01/30/25 22:00 Metoprolol Tartrate 50 mg BID PO 01/30/25 22:00 Valsartan 160 mg DAILY PO 01/31/25 10:00 Albuterol 2.5 mg Q6HPRN PRN NEB 01/30/25 19:15 Ipratropium [place] 0.5 mg Q6HPRN PRN NEB 01/30/25 19:15 Ondansetron HCl 4 mg Q4HP PRN IV 01/30/25 19:15 Acetaminophen 650 mg Q6HP PRN PO 01/30/25 19:15 Nitroglycerin 0.4 mg Q5MINP PRN SL 01/30/25 19:15 Morphine Sulfate 2 mg Q30M PRN IV 01/30/25 19:15 Aspirin 81 mg DAILY PO 01/31/25 10:00 Atorvastatin Calcium 10 mg HS PO 01/30/25 22:00 Exam Vital Signs Vital Signs Date Time Temp Pulse Resp B/P (MAP) Pulse Ox O2 Delivery O2 Flow Rate FiO2 01/30/25 19:27 97.8 69 18 112/79 95 0.0 21 97.8 01/30/25 17:05 Room Air* Exam Gen: 69-year-old female in mild distress Skin: Warm, dry, normal color and texture, no rash. HEENT: Normocephalic atraumatic, mucous membranes moist and pink. Neck: Cervical and supraclavicular nodes normal without enlargement, trachea is midline, thyroid gland is normal without masses. Pulmonary: Clear to auscultation and percussion bilaterally. Cardiac: Regular rate and rhythm. No murmur Abdomen: Soft, nontender, nondistended, bowel sounds present all 4 quadrants, no guarding, no rigidity, no organomegaly. Extremities: No cyanosis, clubbing, plus one bilateral pedal edema Neuro: Cranial nerves II through XII grossly intact, normal affect and speech, no focal motor deficits. Labs/Xrays ORDERING PHYSICIAN: ATA LIGHT MD PROCEDURE(s): CTACH - CT ANGIO CHEST CONTRAST REASON: sob ORDER NUMBER(s): [id number], ACCESSION NUMBER(s): [id number] EXAM: CT CT ANGIO CHEST CONTRAST HISTORY: sob COMPARISON: Chest x-ray from earlier same day. Radiation Dose: Chest: CTDI volume is 28.94 mGy. Dose-length product is 937.56 mGy*cm TECHNIQUE: Helical CT images of the chest were performed with IV contrast using pulmonary CTA protocol. Sagittal and coronal reformatted images and 3D MIP images were obtained. This CT exam was performed using 1 or more of the following dose reduction techniques: Automated exposure control, adjustment of the mA and/or kv according to patient size, or the use of iterative reconstruction techniques. FINDINGS: No pulmonary arterial filling defects are identified. There are small right and trace left pleural effusions. There is interlobular septal thickening. There are patchy and ground-glass opacities in both lungs. There is moderate peribronchial thickening. No pneumothorax. No suspicious mediastinal or axillary adenopathy. The heart is enlarged. There are extensive coronary artery calcifications. The central pulmonary arteries are ectatic. There is ascending thoracic aortic ectasia measuring up to 4.3 cm diameter. The descending thoracic aorta is normal in caliber. The liver is likely diffusely fatty density. There is mild fat stranding about the pancreatic head, not fully imaged here. There is gallbladder wall thickening, although the gallbladder is not distended. There is a left chest AICD. There is moderate to severe thoracic degenerative disc disease. There is mild lower thoracic levoscoliosis. IMPRESSION: 1. No evidence of pulmonary embolism. 2. Cardiomegaly, pleural effusions, interlobular septal thickening, peribronchial thickening suggestive of CHF. 3. Patchy and ground-glass opacities bilaterally which may be due to CHF and/or pneumonia. 4. Pulmonary arterial hypertension. 5. Extensive coronary artery disease and left chest AICD. 6. Probable hepatic steatosis. 7. Fat stranding about the pancreatic head may be due to acute pancreatitis. Correlate with pancreatic enzymes. The abdomen is not fully imaged here. 8. Gallbladder wall thickening may be due to acute cholecystitis or artifactual appearance due to lack of luminal distention. Recommend follow-up right upper quadrant ultrasound for better characterization, especially if the patient is tender to palpation in the right upper quadrant. Correlate with LFTs. ATED BY: MARRY LEHMAN MD DICTATED DATE/TIME: 01/30/25 1701 Labs Test 01/30/25 20:42 01/30/25 17:09 01/30/25 14:31 Range/Units Troponin I High Sensitivity 59 *H </=34 ng/L Influenza Type A Antigen Negative Negative Influenza Type B Antigen Negative Negative SARS-CoV-2 Antigen (Rapid) Negative NEGATIVE White Blood Count 9.8 4.4-10.8 10^3/uL Red Blood Count 4.13 4.0-5.20 10^6/uL Hemoglobin 13.0 12.2-16.2 g/dL Hematocrit 38.2 36.0-46.0 % Mean Corpuscular Volume 92.4 80.0-100.0 fL Mean Corpuscular Hemoglobin 31.5 28.0-32.0 pg Mean Corpuscular Hemoglobin Concent 34.1 32.0-36.0 g/dL Red Cell Distribution Width 13.8 11.8-14.3 % Platelet Count 184 140-450 10^3/uL Mean Platelet Volume 9.3 6.9-10.8 fL Neutrophils (%) (Auto) 76.7 37.0-80.0 % Lymphocytes (%) (Auto) 16.5 10.0-50.0 % Monocytes (%) (Auto) 6.1 0.0-12.0 % Eosinophils (%) (Auto) 0.2 0.0-7.0 % Basophils (%) (Auto) 0.5 0.0-2.0 % Neutrophils # (Auto) 7.5 1.6-8.6 10 ^3/uL Lymphocytes # (Auto) 1.6 0.4-5.4 10 ^3/uL Monocytes # (Auto) 0.6 0-1.3 10 ^3/uL Eosinophils # (Auto) 0 0-0.8 10 ^3/uL Basophils # (Auto) 0.1 0-0.2 10 ^3/uL Nucleated Red Blood Cells 0.1 % Sodium Level 135 L 136-145 mmol/L Potassium Level 4.3 3.5-5.1 mmol/L Chloride Level 101 98-107 mmol/L Carbon Dioxide Level 26 20-31 mmol/L Anion Gap 8 5-15 Blood Urea Nitrogen 21 9-23 mg/dL Creatinine 1.13 H 0.550-1.02 mg/dL Glomerular Filtration Rate Calc 53 >90 mL/min BUN/Creatinine Ratio 18.6 10.0-20.0 Serum Glucose 167 H 74-106 mg/dL Calcium Level 9.2 8.7-10.4 mg/dL B-Type Natriuretic Peptide 1987.78 0-100 pg/mL Assessment/Plan Assessment/Plan Assessment Acute on chronic respiratory failure CHF exacerbation Asthma Hypertension ? Pneumonia Status post AICD Plan Admit the patient to telemetry to the hospitalist IV Lasix Azithromycin Med nebs Resume home medications Continue treatment per orders. Plan discussed with: Patient My Orders Orders - AUNG MORENO AGACNP Procedure Category Date Status Time Furosemide Injection PHA 01/31/25 In Process (Lasix Injection) 06:00 Azithromycin 500mg/ PHA 01/31/25 In Process 250ml (Zithromax 50 20:00 Sacubitril-Valsartan PHA 01/30/25 In Process (Entresto 24-26 Mg 22:00 Dabigatran Capsule PHA 01/30/25 In Process (Pradaxa Capsule) 22:00 Metoprolol Tartrate PHA 01/30/25 In Process Tablet (Lopressor Ta 22:00 Valsartan (Diovan) PHA 01/31/25 In Process 10:00 Albuterol Medneb PHA 01/30/25 In Process (Ventolin Medneb) 19:15 Ipratropium Medneb PHA 01/30/25 In Process (Atrovent Medneb) 19:15 Admit ADMIT 01/30/25 Transmitted 19:12 Ondansetron Hcl PHA 01/30/25 In Process (Zofran) 19:15 Cardiac DIET 01/31/25 Transmitted Diet-2gna,Lofat,Lochol Breakfast Condition: Fair ROE 01/30/25 In Process 19:12 Acetaminophen Tablet PHA 01/30/25 In Process (Tylenol Tablet) 19:15 Bedrest With Bathroom ROE 01/30/25 In Process Privileg 19:12 Nitroglycerin PHA 01/30/25 In Process Sublingual (Ntrostat 19:15 Morphine Sulfate PHA 01/30/25 In Process Injection 19:15 Stat Ekg For Chest ROE 01/30/25 In Process Pain 19:12 Notify Md Of Changes [facility] 01/30/25 In Process From Base 19:12 Daylight Driller For [facility] 01/30/25 In Process 24 Hours 19:12 Emergency Dysrhythmia [facility] 01/30/25 In Process Protocol 19:12 Rhythm Strips Once [facility] 01/30/25 In Process Every Shift 19:12 Oxygen By Nasal RT 01/30/25 Transmitted Cannula 19:12 Aspirin Tablet PHA 01/31/25 In Process 10:00 Atorvastatin (Lipitor) PHA 01/30/25 In Process 22:00 Date of Service: Jan 30, 2025 Billing Provider: AUNG MORENO Common Visit Codes: [id number] INP/OBS CARE (HIGH) AUNG MORENO Jan 30, 2025 22:22
[2025-01-30 22:41] VITALS: BP 132/78; PULSE 60; PULSE 99; RESP 16; RESP 22; TEMP 98.2; O2SAT 92
[2025-01-30] MEDS ORDERED: SACU1TAB PO (22:46)
[2025-01-30] MEDS: SACUBITRIL-VALSARTAN 24mg/26mg TAB PO SCH (23:14)
[2025-01-30] MEDS: AZITHROMYCIN 500MG/ 250ML 250 ML IV ONE (23:15)
[2025-01-30] MEDS: ATORVASTATIN 20 MG TAB PO SCH (23:16)
[2025-01-30] MEDS: FUROSEMIDE 40 MG/4 ML VIAL IV ONE (23:18)
[2025-01-30] MEDS: METOPROLOL TARTRATE 50 MG TAB PO SCH (23:19)
[2025-01-31] VITALS (10 sets, daily range): BP systolic 100–122; BP diastolic 46–84; PULSE 60–99; RESP 18–22; TEMP 97.3–98.4; O2SAT 91–98
[2025-01-31] MEDS: DABIGATRAN 75 MG CAP PO SCH (00:05)
[2025-01-31] MEDS: FUROSEMIDE 20 MG/2 ML VIAL IV SCH (06:21)
[2025-01-31] MEDS: ASPirin 81 mg TAB PO SCH (09:05)
[2025-01-31] MEDS: VALSARTAN 80 MG TAB PO SCH (09:05)
--- NOTE | 2025-01-31 11:12 | DVHPN2 ---
Subjective The patient seen and examined at bedside. No complains today. Reviewed: Care Plan, H&P, Labs, Medications, Previous Orders, Radiology Changes from previous H/P or p: No Changes Objective Vitals Vital Signs Date Time Temp Pulse Resp B/P (MAP) Pulse Ox O2 Delivery O2 Flow Rate FiO2 01/31/25 09:06 60 122/84 01/31/25 09:00 97.4 18 98 97.4 01/30/25 22:41 Room Air* 0 21 Intake/Output Intake and Output 01/31/25 07:00 Intake Total 240 ml Balance 240 ml Intake Oral 240 ml # Voids 2 # Bowel Movements 1 General Appearance: Alert, Oriented X3, Cooperative, No acute distress HEENT: Atraumatic, PERRLA, EOMI, Mucous membr. moist/pink Neck: Supple Lungs: Clear to auscultation, Other (wheezing and decrease breathsound bilateral.) Cardiovascular: Regular rate, Normal S1, Normal S2, No murmurs, Gallops, Rubs Abdomen: Normal bowel sounds, Soft, No tenderness Neuro: Cranial nerves 3-12 NL Psych/Mental Status: Mental status NL Medications Current Medications Medications Dose Ordered Sig/Umer Route Start Time Stop Time Status Last Admin Dose Admin Furosemide 20 mg BIDD IV 01/31/25 06:00 01/31/25 06:21 20 MG Azithromycin 250 ml @ 125 mls/hr DAILY@2000 IV 01/31/25 20:00 Sacubitril/ Valsartan 1 tab BID PO 01/30/25 22:00 01/31/25 09:05 1 TAB Dabigatran 75 mg BID PO 01/30/25 22:00 01/31/25 09:53 75 MG Metoprolol Tartrate 50 mg BID PO 01/30/25 22:00 01/31/25 09:06 50 MG Valsartan 160 mg DAILY PO 01/31/25 10:00 01/31/25 09:05 160 MG Albuterol 2.5 mg Q6HPRN PRN NEB 01/30/25 19:15 Ipratropium [place] 0.5 mg Q6HPRN PRN NEB 01/30/25 19:15 Ondansetron HCl 4 mg Q4HP PRN IV 01/30/25 19:15 Acetaminophen 650 mg Q6HP PRN PO 01/30/25 19:15 Nitroglycerin 0.4 mg Q5MINP PRN SL 01/30/25 19:15 Morphine Sulfate 2 mg Q30M PRN IV 01/30/25 19:15 Aspirin 81 mg DAILY PO 01/31/25 10:00 01/31/25 09:05 81 MG Atorvastatin Calcium 10 mg HS PO 01/30/25 22:00 01/30/25 23:16 10 MG Laboratory Results Laboratory Tests 01/30/25 14:31 Chemistry Test 01/30/25 14:31 Calcium Level 9.2 mg/dL (8.7-10.4) Cardiac Markers Test 01/30/25 14:31 B-Type Natriuretic Peptide 1987.78 pg/mL (0-100) Labs and/or images reviewed: Labs reviewed by me Assessment/Plan Assessment/Plan Acute on chronic respiratory failure CHF exacerbation Asthma Hypertension Pneumonia with Gr. pos/Gr. neg bacteria Status post AICD Plan Continue current management. Continue IV Lasix Continue IV Azithromycin , will add rocephin 1gm IV qday. Med nebs Resume home medications Plan discussed with: Patient Date of Service: Jan 31, 2025 Billing Provider: KO RAMON MD Common Visit Codes: [id number] INP/OBS CARE(HIGH) KO RAMON MD Jan 31, 2025 11:12
[2025-01-31] MEDS: AZITHROMYCIN 500MG/ 250ML 250 ML IV SCH (20:29)
[2025-02-01] VITALS (9 sets, daily range): BP systolic 94–116; BP diastolic 55–74; PULSE 47–105; RESP 16–18; TEMP 97.4–98.1; O2SAT 94–100
[2025-02-01 09:11] LABS: Basophils # (auto) 0 10 ^3/uL (0-0.2); Basophils % (auto) 0.1 % (0.0-2.0); Eosinophils # (auto) 0 10 ^3/uL (0-0.8); Hemoglobin 13.3 g/dL (12.2-16.2); Lymphocytes # (auto) 1.4 10 ^3/uL (0.4-5.4); Lymphocytes % (auto) 10.3 % (10.0-50.0); Mean Corpuscular Hemoglobin 30.6 pg (28.0-32.0); Mean Corpuscular Hgb Conc. 32.4 g/dL (32.0-36.0); Mean Corpuscular Volume 94.6 fL (80.0-100.0); Monocytes # (auto) 0.7 10 ^3/uL (0-1.3); Monocytes % (auto) 4.8 % (0.0-12.0); Neutrophils # (auto) 11.9 10 ^3/uL (1.6-8.6); Neutrophils % (auto) 84.8 % (37.0-80.0); Nucleated Red Blood Cells % 0.1 %; Platelet Count (auto) 223 10^3/uL (140-450); Red Blood Cells 4.33 10^6/uL (4.0-5.20); Red Cell Distribution Width 14.4 % (11.8-14.3)
[2025-02-01 09:20] LABS: Anion Gap 7 (5-15); Carbon Dioxide 29 mmol/L (20-31); Potassium 4.6 mmol/L (3.5-5.1)
[2025-02-01 09:21] LABS: Calcium 9.6 mg/dL (8.7-10.4); Chloride 97 mmol/L (98-107); Sodium 133 mmol/L (136-145)
[2025-02-01 09:26] LABS: BUN/Creatinine Ratio 28.9 (10.0-20.0)
[2025-02-01 09:29] LABS: Blood Urea Nitrogen 43 mg/dL (9-23); Glucose 175 mg/dL (74-106)
[2025-02-01] MEDS: cefTRIAXone 1GM/50ML D5W 50 ML IV SCH (09:47)
--- NOTE | 2025-02-01 13:53 | DVHPN2 ---
Subjective covering leaning more towards chf exacerbation, changing lasix to 40 daily, strict io Reviewed: Care Plan, H&P, Labs, Medications, Previous Orders, Radiology Changes from previous H/P or p: No Changes Objective Vitals Vital Signs Date Time Temp Pulse Resp B/P (MAP) Pulse Ox O2 Delivery O2 Flow Rate FiO2 02/01/25 13:00 97.8 100 18 102/66 (78) 100 97.8 01/31/25 20:00 Room Air* 0 21 Intake/Output Intake and Output 02/01/25 07:00 Intake Total 1630 ml Output Total 0 ml Balance 1630 ml Intake Oral 1380 ml IV Total 250 ml Output Urine Total 0 ml # Voids 1 General Appearance: Alert, Oriented X3, Cooperative, No acute distress HEENT: Atraumatic, PERRLA, EOMI, Mucous membr. moist/pink Neck: Supple Lungs: Clear to auscultation, Other (wheezing and decrease breathsound bilateral.) Cardiovascular: Regular rate, Normal S1, Normal S2, No murmurs, Gallops, Rubs Abdomen: Normal bowel sounds, Soft, No tenderness Neuro: Cranial nerves 3-12 NL Psych/Mental Status: Mental status NL Medications Current Medications Medications Dose Ordered Sig/Umer Route Start Time Stop Time Status Last Admin Dose Admin Furosemide 20 mg BIDD IV 01/31/25 06:00 02/01/25 05:34 20 MG Azithromycin 250 ml @ 125 mls/hr DAILY@2000 IV 01/31/25 20:00 01/31/25 20:29 125 MLS/HR Sacubitril/ Valsartan 1 tab BID PO 01/30/25 22:00 02/01/25 09:49 1 TAB Dabigatran 75 mg BID PO 01/30/25 22:00 02/01/25 09:49 75 MG Metoprolol Tartrate 50 mg BID PO 01/30/25 22:00 02/01/25 09:50 50 MG Valsartan 160 mg DAILY PO 01/31/25 10:00 02/01/25 09:50 160 MG Albuterol 2.5 mg Q6HPRN PRN NEB 01/30/25 19:15 Cancel Ipratropium [place] 0.5 mg Q6HPRN PRN NEB 01/30/25 19:15 Cancel Acetaminophen 650 mg Q6HP PRN PO 01/30/25 19:15 Aspirin 81 mg DAILY PO 01/31/25 10:00 02/01/25 09:48 81 MG Atorvastatin Calcium 10 mg HS PO 01/30/25 22:00 01/31/25 20:29 10 MG Ceftriaxone Sodium 50 ml @ 100 mls/hr DAILY@09 IV 02/01/25 09:00 02/01/25 09:47 100 MLS/HR Laboratory Results Laboratory Tests 02/01/25 08:49 Chemistry Test 02/01/25 08:49 Calcium Level 9.6 mg/dL (8.7-10.4) Assessment/Plan Assessment/Plan Acute on chronic respiratory failure CHF exacerbation Asthma Hypertension Pneumonia with Gr. pos/Gr. neg bacteria Status post AICD Plan Continue current management. Continue IV Lasix goal -500 to 1L Continue IV Azithromycin , will add rocephin 1gm IV qday. Med nebs Resume home medications Plan discussed with: Patient My Orders Orders - MINH VIVAS MD Procedure Category Date Status Time Furosemide Injection PHA 02/01/25 Logged (Lasix Injection) 14:00 Date of Service: Feb 01, 2025 Billing Provider: MINH VIVAS MD Common Visit Codes: [id number] INP/OBS CARE(HIGH) MINH VIVAS MD Feb 01, 2025 13:53
[2025-02-01] MEDS: FUROSEMIDE 20 MG/2 ML VIAL IV SCH (14:00)
[2025-02-02] VITALS (11 sets, daily range): BP systolic 88–111; BP diastolic 51–79; PULSE 67–100; RESP 17–18; TEMP 97.4–98.6; O2SAT 96–100
[2025-02-02] MEDS: ALBUMIN 5% 250 ML IV ONE (01:47)
[2025-02-02 06:30] LABS: Basophils # (auto) 0 10 ^3/uL (0-0.2); Basophils % (auto) 0.4 % (0.0-2.0); Eosinophils # (auto) 0.1 10 ^3/uL (0-0.8); Eosinophils % (auto) 1.7 % (0.0-7.0); Hematocrit 39.2 % (36.0-46.0); Hemoglobin 13.1 g/dL (12.2-16.2); Lymphocytes # (auto) 1.9 10 ^3/uL (0.4-5.4); Lymphocytes % (auto) 22.4 % (10.0-50.0); Mean Corpuscular Hemoglobin 31.2 pg (28.0-32.0); Mean Corpuscular Hgb Conc. 33.3 g/dL (32.0-36.0); Mean Corpuscular Volume 93.7 fL (80.0-100.0); Monocytes # (auto) 0.8 10 ^3/uL (0-1.3); Monocytes % (auto) 9.7 % (0.0-12.0); Neutrophils # (auto) 5.5 10 ^3/uL (1.6-8.6); Neutrophils % (auto) 65.8 % (37.0-80.0); Nucleated Red Blood Cells % 0.2 %; Platelet Count (auto) 228 10^3/uL (140-450); Red Blood Cells 4.19 10^6/uL (4.0-5.20); Red Cell Distribution Width 14.3 % (11.8-14.3); White Blood Cell 8.3 10^3/uL (4.4-10.8)
[2025-02-02 06:43] LABS: Anion Gap 6 (5-15); Carbon Dioxide 28 mmol/L (20-31); Potassium 4.6 mmol/L (3.5-5.1)
[2025-02-02 06:45] LABS: Calcium 9.3 mg/dL (8.7-10.4)
[2025-02-02 06:49] LABS: Chloride 96 mmol/L (98-107); Glucose 104 mg/dL (74-106); Sodium 130 mmol/L (136-145)
[2025-02-02 06:50] LABS: BUN/Creatinine Ratio 33.9 (10.0-20.0); Blood Urea Nitrogen 40 mg/dL (9-23); Magnesium 2.1 mg/dL (1.6-2.6)
[2025-02-02 06:52] LABS: Phosphorus 4.3 mg/dL (2.4-5.1)
--- NOTE | 2025-02-02 16:19 | DVHPN2 ---
Subjective covering c/w diuresis. delirium precaution Reviewed: Care Plan, H&P, Labs, Medications, Previous Orders, Radiology Changes from previous H/P or p: No Changes Objective Vitals Vital Signs Date Time Temp Pulse Resp B/P (MAP) Pulse Ox O2 Delivery O2 Flow Rate FiO2 02/02/25 14:12 98.5 85 18 100/69 (79) 99 98.5 02/02/25 08:00 Nasal Cannula* 4 36 Intake/Output Intake and Output 02/02/25 07:00 Intake Total 1590 ml Balance 1590 ml Intake Oral 1290 ml IV Total 300 ml # Voids 7 # Bowel Movements 1 General Appearance: Alert, Oriented X3, Cooperative, No acute distress HEENT: Atraumatic, PERRLA, EOMI, Mucous membr. moist/pink Neck: Supple Lungs: Clear to auscultation, Other (wheezing and decrease breathsound bilateral.) Cardiovascular: Regular rate, Normal S1, Normal S2, No murmurs, Gallops, Rubs Abdomen: Normal bowel sounds, Soft, No tenderness Neuro: Cranial nerves 3-12 NL Psych/Mental Status: Mental status NL Medications Current Medications Medications Dose Ordered Sig/Umer Route Start Time Stop Time Status Last Admin Dose Admin Azithromycin 250 ml @ 125 mls/hr DAILY@1999 IV 01/31/25 20:00 02/01/25 20:06 125 MLS/HR Sacubitril/ Valsartan 1 tab BID PO 01/30/25 22:00 02/02/25 09:32 1 TAB Dabigatran 75 mg BID PO 01/30/25 22:00 02/02/25 09:34 75 MG Metoprolol Tartrate 50 mg BID PO 01/30/25 22:00 02/01/25 22:22 50 MG Albuterol 2.5 mg Q6HPRN PRN NEB 01/30/25 19:15 Cancel Ipratropium [place] 0.5 mg Q6HPRN PRN NEB 01/30/25 19:15 Cancel Acetaminophen 650 mg Q6HP PRN PO 01/30/25 19:15 Aspirin 81 mg DAILY PO 01/31/25 10:00 02/02/25 09:33 81 MG Atorvastatin Calcium 10 mg HS PO 01/30/25 22:00 02/01/25 22:22 10 MG Ceftriaxone Sodium 50 ml @ 100 mls/hr DAILY@ IV 02/01/25 09:00 02/02/25 09:34 100 MLS/HR Furosemide 40 mg DAILY IV 02/01/25 14:00 Laboratory Results Laboratory Tests 02/02/25 05:55 Chemistry Test 02/02/25 05:55 Calcium Level 9.3 mg/dL (8.7-10.4) Magnesium Level 2.1 mg/dL (1.6-2.6) Phosphorus Level 4.3 mg/dL (2.4-5.1) Assessment/Plan Assessment/Plan Acute on chronic respiratory failure CHF exacerbation Asthma Hypertension Pneumonia with Gr. pos/Gr. neg bacteria Status post AICD Plan Continue current management. Continue IV Lasix goal -500 to 1L Continue IV Azithromycin , will add rocephin 1gm IV qday. Med nebs Resume home medications Plan discussed with: Patient, Spouse Date of Service: Feb 02, 2025 Billing Provider: MINH VIVAS MD Common Visit Codes: [id number] INP/OBS CARE(HIGH) MINH VIVAS MD Feb 02, 2025 16:19
[2025-02-02 19:56] LABS: Phosphorus 3.4 mg/dL (2.4-5.1)
[2025-02-03] VITALS (7 sets, daily range): BP systolic 100–131; BP diastolic 68–85; PULSE 55–107; RESP 17–18; TEMP 97.7–98.4; O2SAT 92–100
[2025-02-03 06:41] LABS: Basophils # (auto) 0 10 ^3/uL (0-0.2); Basophils % (auto) 0.5 % (0.0-2.0); Eosinophils # (auto) 0.2 10 ^3/uL (0-0.8); Eosinophils % (auto) 1.7 % (0.0-7.0); Hematocrit 46.2 % (36.0-46.0); Hemoglobin 15.4 g/dL (12.2-16.2); Lymphocytes # (auto) 2.3 10 ^3/uL (0.4-5.4); Lymphocytes % (auto) 25.5 % (10.0-50.0); Mean Corpuscular Hemoglobin 31.6 pg (28.0-32.0); Mean Corpuscular Hgb Conc. 33.4 g/dL (32.0-36.0); Mean Corpuscular Volume 94.5 fL (80.0-100.0); Monocytes # (auto) 0.7 10 ^3/uL (0-1.3); Monocytes % (auto) 7.4 % (0.0-12.0); Neutrophils # (auto) 5.9 10 ^3/uL (1.6-8.6); Neutrophils % (auto) 64.9 % (37.0-80.0); Nucleated Red Blood Cells % 0.2 %; Platelet Count (auto) 255 10^3/uL (140-450); Red Blood Cells 4.88 10^6/uL (4.0-5.20); White Blood Cell 9.1 10^3/uL (4.4-10.8)
[2025-02-03 07:47] LABS: Chloride 102 mmol/L (98-107); Potassium 4.7 mmol/L (3.5-5.1); Sodium 137 mmol/L (136-145)
[2025-02-03 07:48] LABS: Anion Gap 11 (5-15); Carbon Dioxide 24 mmol/L (20-31)
[2025-02-03 07:53] LABS: BUN/Creatinine Ratio 23.1 (10.0-20.0); Glucose 94 mg/dL (74-106); Magnesium 2.4 mg/dL (1.6-2.6)
[2025-02-03 07:55] LABS: Phosphorus 3.6 mg/dL (2.4-5.1)
[2025-02-03 07:58] LABS: Blood Urea Nitrogen 24 mg/dL (9-23)
--- NOTE | 2025-02-03 08:08 | ECG ---
[facility] Test Date: 2025-02-02 Test Time: 18:52:44 Pat Name: BRADLEY ELLIS Department: Respiratoy Room: [facility]T A Gender: F [employer]: [id number] : [id number] Requested By: LONNY ALFARO Order Number: [id number] Reading MD: Keith Dubois Measurements Intervals [place] Rate: 89 P: 0 MD: 0 QRS: 256 QRSD: 106 T: 104 QT: 380 QTc: 463 Interpretive Statements Atrial fibrillation Left anterior fascicular block Abnormal R-wave progression, late transition Nonspecific T abnormalities, lateral leads Electronically Signed On 02-04-2025 20:21:02 PDT by Keith Dubois Please click the below link to view image of tracing.
--- NOTE | 2025-02-03 11:14 | DVHCONRES ---
Date Seen: Feb 03, 2025 Resident Creating Document: CHANNING SANCHEZ RESIDENT Reason for Consultation runs of v tach/ afib History of Present Illness Patient is a 69-year-old female with past medical history of Chagas cardiomyopathy, heart failure with reduced ejection fraction 20%, atrial fibrillation on dabigatran hypertension, hyperlipidemia, s/p AICD placement in 2022, asthma, who comes in due to shortness of breath. Per patient, she had worsening shortness of breaths along with bilateral lower extremity swelling and a dry cough which is what prompted this visit to the hospital. Currently notes significant improvement in her respiratory symptoms and is breathing on room air with a dyspnea Functional Class II. On review of systems patient is complaining of fatigue, shortness of breath on exertion, an episode of vomiting 2 days ago. Echocardiogram from December 2024 shows EF 20%, end-stage dilated cardiomyopathy with moderate aortic stenosis and aortic regurgitation. Past Medical History Chagas cardiomyopathy, heart failure with reduced ejection fraction 20%, atrial fibrillation on Eliquis, hypertension, hyperlipidemia, s/p AICD placement in 2022, asthma Past Surgical History Hernia repair surgery, s/p AICD in 2022, bladder prolapse repair Family History: FH: cancer FHx: lung cancer G8 MOTHER, Social History Smoking: Denies Alcohol: Denies Drugs: Denies Allergies: Coded Allergies: NO KNOWN ALLERGIES (Unverified , 04/21/14) Home Meds Active Scripts Levofloxacin Hemihydrate (LEVOFLOXACIN) 500 Mg Tab, 1 TAB PO DAILY for 5 Days, #5 TAB Prov:MINH VIVAS MD 02/03/25 Furosemide (Lasix) 40 Mg Tab, 40 MG PO DAILY for 30 Days, #30 TAB Prov:MINH VIVAS MD 02/03/25 Furosemide (Furosemide) 20 Mg Tab, 1 TAB PO DAILY for 60 Days, #60 TAB 1 Refill Prov:ALEJANDRO MADERA RESIDENT 12/13/24 Reported Medications Dabigatran Etexilate Mesylate (Dabigatran Etexilate) 75 Mg Cap, 1 CAP PO BID for 90 Days, #180 02/01/25 Albuterol Sulfate (Albuterol Sulfate Hfa) 108 Mcg/Act Aer, 1 PUFF PO Q4HR PRN PRN for SHORTNESS OF BREATH for 100 Days, #20.1 02/01/25 Sacubitril-Valsartan (Entresto 24-26 mg) 1 Tab Tab, 1 TAB PO BID 01/30/25 Metoprolol Tartrate (LOPRESSOR TABLET) 50 Mg Tb, 1 TAB PO BID for 90 Days, #180 07/11/23 Valsartan (Valsartan) 160 Mg Tab, 1 TAB PO DAILY 07/11/23 Review of Systems Patient seen and examined at bedside. Patient is alert and oriented to time, place person and responding to all questions. General: Fatigue Eyes: No Pain, No Vision change, No Conjunctivae inflammation, No Eyelid inflammation, No Other, No Redness ENT: No Ear pain, No Ear discharge, No Nose pain, No Nose discharge, No Nose congestion, No Mouth pain, No Mouth swelling, No Throat pain, No Throat swelling, No Other Cardiovascular: No Chest Pain, No Palpitations, No Orthopnea, No Paroxysmal No Dyspnea, No Edema, No Lt Headedness, No Other Respiratory: No Cough, No Dry, No Shortness of breath, SOB with exertion, No Wheezing, No Hemoptysis, No Pleuritic Pain, No Sputum, No Other Gastrointestinal: No Nausea, Vomiting, No Abdominal Pain, No Diarrhea, No Constipation, No Melena, No Hematochezia, No Other Genitourinary: No Dysuria, No Frequency, No Incontinence, No Hematuria, No Retention, No Other Musculoskeletal: No other, No neck pain, No shoulder pain, No arm pain, No back pain, No hand pain, No leg pain, No foot pain Skin: No Rash, No Lesions, No Jaundice, No Bruising, No Other Vital Signs Vital Signs Date Time Temp Pulse Resp B/P (MAP) Pulse Ox O2 Delivery O2 Flow Rate FiO2 02/03/25 09:42 98.3 55 18 130/85 (100) 99 98.3 02/02/25 20:00 Nasal Cannula* 4 36 Physical Exam General Appearance: Cooperative. Well developed. Well nourished. NAD Head Exam: Normal inspection Neck Exam: Normal inspection. Non-tender. Normal alignment Pulmonary/Respiratory: Chest non-tender. Slightly decreased bilateral breath sounds, trace crackles, no wheezing. Cardiovascular/Chest: Regular rate and rhythm. No murmurs. No JVD. Peripheral Pulses: 2+ Radial (R). 2+ Radial (L). 2+ Pedal (R). 2+ Pedal (L) Abdominal Exam: Normal bowel sounds. Soft. normal abdomen, no visible veins, Nontender. No hepatospenomegaly. No masses Ankle Exam: Trace ankle edema Neuro/Mental Status: A&O x4. Coherent. Skin Exam: Normal inspection. Normal color. Warm. Dry Labs/Diagnostic Data Labs Test 02/03/25 05:38 02/02/25 21:27 02/02/25 05:55 01/30/25 17:09 Range/Units White Blood Count 9.1 4.4-10.8 10^3/uL Red Blood Count 4.88 4.0-5.20 10^6/uL Hemoglobin 15.4 # 12.2-16.2 g/dL Hematocrit 46.2 #H 36.0-46.0 % Mean Corpuscular Volume 94.5 80.0-100.0 fL Mean Corpuscular Hemoglobin 31.6 28.0-32.0 pg Mean Corpuscular Hemoglobin Concent 33.4 32.0-36.0 g/dL Red Cell Distribution Width 14.0 11.8-14.3 % Platelet Count 255 140-450 10^3/uL Mean Platelet Volume 9.5 6.9-10.8 fL Neutrophils (%) (Auto) 64.9 37.0-80.0 % Lymphocytes (%) (Auto) 25.5 10.0-50.0 % Monocytes (%) (Auto) 7.4 0.0-12.0 % Eosinophils (%) (Auto) 1.7 0.0-7.0 % Basophils (%) (Auto) 0.5 0.0-2.0 % Neutrophils # (Auto) 5.9 1.6-8.6 10 ^3/uL Lymphocytes # (Auto) 2.3 0.4-5.4 10 ^3/uL Monocytes # (Auto) 0.7 0-1.3 10 ^3/uL Eosinophils # (Auto) 0.2 0-0.8 10 ^3/uL Basophils # (Auto) 0 0-0.2 10 ^3/uL Nucleated Red Blood Cells 0.2 % Sodium Level 137 # 136-145 mmol/L Potassium Level 4.7 3.5-5.1 mmol/L Chloride Level 102 98-107 mmol/L Carbon Dioxide Level 24 20-31 mmol/L Anion Gap 11 5-15 Blood Urea Nitrogen 24 #H 9-23 mg/dL Creatinine 1.04 H 0.550-1.02 mg/dL Glomerular Filtration Rate Calc 59 >90 mL/min BUN/Creatinine Ratio 23.1 H 10.0-20.0 Serum Glucose 94 74-106 mg/dL Calcium Level 10.0 8.7-10.4 mg/dL Phosphorus Level 3.6 2.4-5.1 mg/dL Magnesium Level 2.4 1.6-2.6 mg/dL Troponin I High Sensitivity 59 *H </=34 ng/L Thyroid Stimulating Hormone (TSH) 2.16 0.55-4.78 uIU/mL Influenza Type A Antigen Negative Negative Influenza Type B Antigen Negative Negative SARS-CoV-2 Antigen (Rapid) Negative NEGATIVE Test 01/30/25 14:31 Range/Units B-Type Natriuretic Peptide 1986.78 0-100 pg/mL Assessment Acute exacerbation of heart failure with reduced ejection fraction, EF 20% on echocardiogram in December 2024. 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 The lungs demonstrate bilateral patchy airspace opacities. The pulmonary vasculature is prominent. Small bilateral pleural effusions. - echocardiogram from 2024 shows markedly diminished systolic function with EF 25% and severe global hypokinesis. [id number] aortic insufficiency and mild tricuspid regurgitation. RVSP 43. - echocardiogram: MODERATELY DILATED LV. SEVERE LV GLOBAL HYPOKINESIS. LV EF IS ONLY 20%. DILATED ALL CARDIAC CHAMBERS AND ALL ARE HYPOKINETIC. END STAGE DILATD CARDIOMYOPATHY. PACEMAKER IN RIGHT CARDIAC CHAMBERS. HEAVILY CALCIFIED AORTIC LEAFLETS. MODERATE DEGREE AORTIC STENOSIS. AORTIC VALVE AREA IS 1.42 CM SQUARE. MODERATE DEGREE AORTIC REGURGITATION. HEAVILY CALCIFIED POSTERIOR MITRAL LEAFLET. MODERATE DEGREE PULMONARY REGURG. MILD PULMONARY HYPERTENSION. RVSP IS 36 MM OF HG. NO EFFUSION. POSTERIOR MV CALCIFIED - continue IV furosemide 40 mg qD - continue dabigatran - continue GDMT - ICD interrogation completed by [employer] - rest of the plan as per course of hospitalization Thank you so much for the opportunity to consult on your patient. Cardiology team will follow the patient. In case of any questions or concerns please feel free to reach out. Plan discussed with Dr. Le Plan discussed with: Patient, Other (RN) Visit Coding Cardiology RES Date of Service: Feb 03, 2025 Billing Provider: MIKE LE MD Cardiology Common Codes: 29770-PRNSCYK INP/OBS CARE (High) CHANNING SANCHEZ RESIDENT Feb 03, 2025 11:14
[2025-02-03] MEDS ORDERED: LEVO500T91 PO (11:57)
[2025-02-03] MEDS ORDERED: FURO1TAB31 PO (11:57)
--- NOTE | 2025-02-03 12:00 | DVHDS2 ---
Discharge Summary Date of Admission Jan 30, 2025 at 19:12 Date of Discharge: Feb 03, 2025 Labs/Diagnostic Data: Laboratory Results Test 02/03/25 05:38 02/02/25 21:27 02/02/25 05:55 01/30/25 17:09 White Blood Count 9.1 10^3/uL (4.4-10.8) Red Blood Count 4.88 10^6/uL (4.0-5.20) Hemoglobin 15.4 g/dL (12.2-16.2) Hematocrit 46.2 % (36.0-46.0) Mean Corpuscular Volume 94.5 fL (80.0-100.0) Mean Corpuscular Hemoglobin 31.6 pg (28.0-32.0) Mean Corpuscular Hemoglobin Concent 33.4 g/dL (32.0-36.0) Red Cell Distribution Width 14.0 % (11.8-14.3) Platelet Count 255 10^3/uL (140-450) Mean Platelet Volume 9.5 fL (6.9-10.8) Neutrophils (%) (Auto) 64.9 % (37.0-80.0) Lymphocytes (%) (Auto) 25.5 % (10.0-50.0) Monocytes (%) (Auto) 7.4 % (0.0-12.0) Eosinophils (%) (Auto) 1.7 % (0.0-7.0) Basophils (%) (Auto) 0.5 % (0.0-2.0) Neutrophils # (Auto) 5.9 10 ^3/uL (1.6-8.6) Lymphocytes # (Auto) 2.3 10 ^3/uL (0.4-5.4) Monocytes # (Auto) 0.7 10 ^3/uL (0-1.3) Eosinophils # (Auto) 0.2 10 ^3/uL (0-0.8) Basophils # (Auto) 0 10 ^3/uL (0-0.2) Nucleated Red Blood Cells 0.2 % Sodium Level 137 mmol/L (136-145) Potassium Level 4.7 mmol/L (3.5-5.1) Chloride Level 102 mmol/L (98-107) Carbon Dioxide Level 24 mmol/L (20-31) Anion Gap 11 (5-15) Blood Urea Nitrogen 24 mg/dL (9-23) Creatinine 1.04 mg/dL (0.550-1.02) Glomerular Filtration Rate Calc 59 mL/min (>90) BUN/Creatinine Ratio 23.1 (10.0-20.0) Serum Glucose 94 mg/dL (74-106) Calcium Level 10.0 mg/dL (8.7-10.4) Phosphorus Level 3.6 mg/dL (2.4-5.1) Magnesium Level 2.4 mg/dL (1.6-2.6) Troponin I High Sensitivity 59 ng/L (</=34) Thyroid Stimulating Hormone (TSH) 2.16 uIU/mL (0.55-4.78) Influenza Type A Antigen Negative (Negative) Influenza Type B Antigen Negative (Negative) SARS-CoV-2 Antigen (Rapid) Negative (NEGATIVE) Test 01/30/25 14:31 B-Type Natriuretic Peptide 1987.78 pg/mL (0-100) Other Laboratory Tests 02/03/25 05:38 Brief Hx & Hospital Course: 69 yo with HFrEF afib chagas cardiomyopathy admitted for SOB, found to be in hf exacerbation. diuresed, covered with iv abx. breathing improved, on RA, comfortable. stable to dc home, lasix increased to 40 po, dc on levofloxacin. discontinued valsartan as pt already on entresto Condition at Discharge: Good Final Diagnosis/Problems List chagas cardiomyopathy HFrEF exacerbation possible PNA gp gn Discharge Disposition: Home Discharge Instruct/Medications Diet: Consistent carbohydrate, Cardiac 2g Na,low cholest Activity: No Restrictions, As Tolerated Follow Up/Referral: cardio [facility] 7 days Discharge Statement: "Patient was advised to return to the ER or call 911 if any headaches, dizziness, shortness of breath, chest pain, abdominal pain, bleeding, fevers, or worsening of medical condition. Patient was counseled about treatment plan, medications, possible side effects, patientverbalized understanding. All questions were answered to the best of my ability. This discharge took greater then 30 minutes in planning, reviewing documentation, counseling the patient, and discussing with other team members." ASSESSMENT ASSESSMENT Assessment Acute on chronic respiratory failure HFrEF exacerbation chagas cardiomyopathy Asthma Hypertension Pneumonia with Gr. pos/Gr. neg bacteria Status post AICD Date of Service: Feb 03, 2025 Billing Provider: MINH VIVAS MD Common Visit Codes: 26525-CSF/OBS DISCH DAY >30min MINH VIVAS MD Feb 03, 2025 12:00
[2025-02-03 13:10] LABS: Base Excess 3.7 mmol/L (-2.0-3.0)
== END 2025-02-03 17:25 | disposition home or self-care (01) | DRG 280 ==
LOC: ER 14:09 → OVERFLOW 19:12 → TELE-WESTW 22:07
PROVIDERS: ADMIT Student in an Organized Health Care Education/Training Program; ATTEND Student in an Organized Health Care Education/Training Program
DX: I11.0 Hypertensive heart disease with heart failure (principal); I50.23 Acute on chronic systolic (congestive) heart failure; I21.A1 Myocardial infarction type 2; J15.69 Pneumonia due to other Gram-negative bacteria; J96.20 Acute and chronic respiratory failure, unspecified whether with hypoxia or hypercapnia; J15.9 Unspecified bacterial pneumonia; B57.2 Chagas' disease (chronic) with heart involvement; J45.42 Moderate persistent asthma with status asthmaticus; Z20.822 Contact with and (suspected) exposure to COVID-19; I48.91 Unspecified atrial fibrillation; Z95.810 Presence of automatic (implantable) cardiac defibrillator
CPT/HCPCS: 36415; 36600; 71046; 71275; 80048; 82805; 83735; 83880; 84100; 84132; 84443; 84484; 85025; 87426; 87804; 93005; 94640; 96365; 96375; 99291; G0378